=== PATIENT | male | born 1975 | race Caucasian/White ===

== ENCOUNTER 2017-05-16 10:57 | Inpatient (IN) | payer SELFPAY ==
[~2017-05-16] VITALS: Ht 167.6 cm; Wt 78.6 kg
[~2017-05-16 10:57] MED LIST: BACL-19 PO; DEXA4TAB PO; FOLI-17 PO; LORA1TAB PO; MULT1TAB60 PO; OXYC5CAP4 PO; PANT40TA5 PO; THIA100T6 PO
[2017-05-16] MEDS ORDERED: LORazepam 2 MG/ML, 1ML ONE ×4 (11:48→15:19)
[2017-05-16] MEDS: LORazepam 2 MG/ML, 1ML IVPush PRN ×7 (11:51→23:17)
[2017-05-16] MEDS ORDERED: SODIUM CHLORIDE 0.9% 1,000ML IVBOLUS ONE (12:00)
[2017-05-16] MEDS ORDERED: SODIUM CHLORIDE FLUSH 10ML SYR IVF ONE (12:00)
[2017-05-16 12:17] LABS: ASPARTATE AMINO TRANSFERASE 242 U/L (15-37); BLOOD UREA NITROGEN 8 mg/dL (7-18)
[2017-05-16 12:49] LABS: DIFF TOTAL CELLS COUNTED 100 CELL DIFF
[2017-05-16 12:53] LABS: ANISOCYTOSIS 1+; VERIFY COUNTS? YES
[2017-05-16 12:54] LABS: HYPOCHROMIA 1+
[2017-05-16 12:56] LABS: LARGE PLATELETS 1+
[2017-05-16] MEDS ORDERED: SODIUM CHLORIDE 0.9% 1,000 ML IV ONE (13:47)
[2017-05-16] MEDS ORDERED: SODIUM CHLORIDE FLUSH 10ML SYR IVF PRN (14:00)
[2017-05-16] MEDS: NS + 20MEQ KCL 1,000 ML IV SCH ×2 (14:03→19:57)
[2017-05-16] MEDS ORDERED: POLYETHYLENE GLYCOL 17 GM PACKET PO PRN (14:30)
[2017-05-16] MEDS ORDERED: ACETAMINOPHEN 325 MG TABLET PO PRN (14:30)
[2017-05-16] MEDS ORDERED: LORazepam 1MG TABLET PO PRN (14:30)
[2017-05-16] MEDS ORDERED: LABETALOL 5MG/ML 40ML VIAL IVPush PRN (14:30)
[2017-05-16] MEDS ORDERED: NS + 20MEQ KCL 1,000 ML IV ONE (15:20)
[2017-05-16] MEDS ORDERED: ENOXAPARIN 40 MG/0.4 ML ONE (15:37)
[2017-05-16] MEDS: ENOXAPARIN 40 MG/0.4 ML SQ SCH (15:39)
[2017-05-16] MEDS ORDERED: THIAMINE 200 MG in SODIUM CHLORIDE 0.9% 50 ML IV ONE (16:00)
[2017-05-16 16:21] VITALS: BP 145/87
[2017-05-16 16:34] VITALS: BP 145/87
[2017-05-16] MEDS: CHLORDIAZEPOXIDE 25 MG CAPSULE PO SCH ×2 (16:45→22:11)
[2017-05-16] MEDS: POTASSIUM CHLORIDE 20 MEQ, MAGNESIUM SULFATE 2 GM, THIAMINE 100 MG, MVI ADULT 10 ML, FO... IV SCH (16:46)
[2017-05-16] MEDS: OXYcodone IR 5MG TABLET PO PRN ×2 (19:57→20:23)
[2017-05-16] MEDS: LABETALOL 5MG/ML, 20ML IVPush PRN (23:43)
[2017-05-17] MEDS: LORazepam 2 MG/ML, 1ML IVPush PRN ×6 (02:50→23:09)
[2017-05-17] MEDS: OXYcodone IR 5MG TABLET PO PRN ×2 (02:53→11:39)
[2017-05-17 04:55] LABS: ASPARTATE AMINO TRANSFERASE 149 U/L (15-37); BLOOD UREA NITROGEN 2 mg/dL (7-18)
[2017-05-17 05:56] LABS: DIFF TOTAL CELLS COUNTED 100 CELL DIFF
[2017-05-17 06:01] LABS: ANISOCYTOSIS 1+; VERIFY COUNTS? YES
[2017-05-17 06:02] LABS: LARGE PLATELETS 1+
[2017-05-17] MEDS: NS + 20MEQ KCL 1,000 ML IV SCH ×3 (06:12→23:38)
[2017-05-17] MEDS: LABETALOL 5MG/ML, 20ML IVPush PRN ×2 (06:13→13:49)
[2017-05-17] MEDS ORDERED: POTASSIUM CHLORIDE 20 MEQ TAB.ER.PRT PO ONE (07:00)
[2017-05-17] MEDS: ONDANSETRON 2MG/ML, 2ML IVPush PRN ×2 (08:13→13:55)
[2017-05-17] MEDS: PANTOPROZOLE 40MG TABLET PO SCH (08:13)
[2017-05-17] MEDS: SENNA/DOCUSATE TABLET PO SCH (08:13)
[2017-05-17] MEDS: ENOXAPARIN 40 MG/0.4 ML SQ SCH (09:07)
[2017-05-17] MEDS: CHLORDIAZEPOXIDE 25 MG CAPSULE PO SCH ×3 (12:02→23:04)
[2017-05-17] MEDS: POTASSIUM CHLORIDE 20 MEQ, MAGNESIUM SULFATE 2 GM, THIAMINE 100 MG, MVI ADULT 10 ML, FO... IV SCH (18:56)
[2017-05-18 04:46] LABS: BLOOD UREA NITROGEN < 1 mg/dL (7-18)
[2017-05-18 04:48] LABS: ASPARTATE AMINO TRANSFERASE 91 U/L (15-37)
[2017-05-18] MEDS: LORazepam 2 MG/ML, 1ML IVPush PRN ×2 (04:52→07:29)
[2017-05-18 05:00] LABS: DIFF TOTAL CELLS COUNTED 100 CELL DIFF
[2017-05-18 05:03] LABS: ANISOCYTOSIS 1+; POLYCHROMASIA 1+; VERIFY COUNTS? YES
[2017-05-18 05:05] LABS: LARGE PLATELETS 1+
[2017-05-18] MEDS: NS + 20MEQ KCL 1,000 ML IV SCH (05:40)
[2017-05-18] MEDS: CHLORDIAZEPOXIDE 25 MG CAPSULE PO SCH ×3 (05:58→22:59)
[2017-05-18] MEDS: SENNA/DOCUSATE TABLET PO SCH (07:31)
[2017-05-18] MEDS: PANTOPROZOLE 40MG TABLET PO SCH (07:33)
[2017-05-18] MEDS: OXYcodone IR 5MG TABLET PO PRN ×2 (07:34→11:40)
[2017-05-18] MEDS ORDERED: LORazepam 2 MG/ML, 1ML IV PRN ×2 (10:30)
[2017-05-18] MEDS: LORazepam 2 MG/ML, 1ML IV PRN ×4 (10:35→20:16)
[2017-05-18] MEDS: ENOXAPARIN 40 MG/0.4 ML SQ SCH (14:30)
[2017-05-18] MEDS: POTASSIUM CHLORIDE 20 MEQ, MAGNESIUM SULFATE 2 GM, THIAMINE 100 MG, MVI ADULT 10 ML, FO... IV SCH (17:53)
[2017-05-18 18:43] VITALS: BP 116/82
[2017-05-19] MEDS: LORazepam 2 MG/ML, 1ML IV PRN ×5 (00:09→21:01)
[2017-05-19 01:24] VITALS: BP 123/90
[2017-05-19 05:48] LABS: BLOOD UREA NITROGEN 2 mg/dL (7-18)
[2017-05-19 05:51] LABS: ASPARTATE AMINO TRANSFERASE 196 U/L (15-37)
[2017-05-19 06:37] VITALS: BP 133/93
[2017-05-19 07:13] LABS: DIFF TOTAL CELLS COUNTED 100 CELL DIFF
[2017-05-19 07:18] LABS: VERIFY COUNTS? YES
[2017-05-19 07:20] LABS: ANISOCYTOSIS 1+; LARGE PLATELETS 1+; POLYCHROMASIA 1+
[2017-05-19] MEDS: SENNA/DOCUSATE TABLET PO SCH (09:00)
[2017-05-19] MEDS: PANTOPROZOLE 40MG TABLET PO SCH (09:06)
[2017-05-19] MEDS: CHLORDIAZEPOXIDE 25 MG CAPSULE PO SCH ×2 (09:07→17:29)
[2017-05-19] MEDS: OXYcodone IR 5MG TABLET PO PRN ×3 (09:12→21:01)
[2017-05-19 12:37] VITALS: BP 117/82
[2017-05-19] MEDS: POTASSIUM CHLORIDE 20 MEQ, MAGNESIUM SULFATE 2 GM, THIAMINE 100 MG, MVI ADULT 10 ML, FO... IV SCH (17:29)
[2017-05-19] MEDS: DEXAMETHASONE 4 MG TABLET PO SCH (17:30)
[2017-05-19 19:10] VITALS: BP 108/76
[2017-05-20] MEDS: CHLORDIAZEPOXIDE 25 MG CAPSULE PO SCH ×2 (00:49→08:19)
[2017-05-20] MEDS: LORazepam 2 MG/ML, 1ML IV PRN ×5 (00:49→23:07)
[2017-05-20 05:02] LABS: BLOOD UREA NITROGEN 6 mg/dL (7-18)
[2017-05-20 05:06] LABS: ASPARTATE AMINO TRANSFERASE 184 U/L (15-37)
[2017-05-20 06:25] LABS: DIFF TOTAL CELLS COUNTED 100 CELL DIFF
[2017-05-20 06:29] LABS: ANISOCYTOSIS 1+; VERIFY COUNTS? YES
[2017-05-20 06:30] LABS: LARGE PLATELETS 1+; POLYCHROMASIA 1+
[2017-05-20] MEDS: SENNA/DOCUSATE TABLET PO SCH (07:28)
[2017-05-20] MEDS: OXYcodone IR 5MG TABLET PO PRN ×2 (08:19→17:54)
[2017-05-20] MEDS: PANTOPROZOLE 40MG TABLET PO SCH (08:19)
[2017-05-20] MEDS: DEXAMETHASONE 4 MG TABLET PO SCH (08:19)
[2017-05-20] MEDS ORDERED: POTASSIUM PHOSPHATE 22 MEQ in SODIUM CHLORIDE 0.9% 500 ML IV ONE (10:30)
[2017-05-20] MEDS ORDERED: ERGOCALCIFEROL 50,000 UNIT CAPSULE PO SCH (10:30)
[2017-05-20] MEDS ORDERED: CHLORDIAZEPOXIDE 5 MG CAPSULE PO PRN ×2 (10:30→15:00)
[2017-05-20 13:12] VITALS: BP 106/75
[2017-05-20] MEDS: POTASSIUM CHLORIDE 20 MEQ, MAGNESIUM SULFATE 2 GM, THIAMINE 100 MG, MVI ADULT 10 ML, FO... IV SCH (15:30)
[2017-05-20 20:35] VITALS: BP 110/75
[2017-05-21] MEDS: LORazepam 2 MG/ML, 1ML IV PRN ×5 (01:13→13:32)
[2017-05-21 05:00] VITALS: BP 127/72
[2017-05-21 05:32] LABS: BLOOD UREA NITROGEN 9 mg/dL (7-18)
[2017-05-21 05:35] LABS: ASPARTATE AMINO TRANSFERASE 75 U/L (15-37)
[2017-05-21 07:29] VITALS: BP 127/88
[2017-05-21] MEDS: PANTOPROZOLE 40MG TABLET PO SCH (08:18)
[2017-05-21] MEDS: DEXAMETHASONE 4 MG TABLET PO SCH (08:19)
[2017-05-21] MEDS: SENNA/DOCUSATE TABLET PO SCH (08:22)
[2017-05-21] MEDS: ONDANSETRON 2MG/ML, 2ML IVPush PRN (12:30)
[2017-05-21] MEDS: OXYcodone IR 5MG TABLET PO PRN (12:32)
[2017-05-21 14:15] VITALS: BP 135/91
[2017-05-21] MEDS: POTASSIUM CHLORIDE 20 MEQ, MAGNESIUM SULFATE 2 GM, THIAMINE 100 MG, MVI ADULT 10 ML, FO... IV SCH (16:49)
[2017-05-21 19:01] VITALS: BP 126/86
[2017-05-22 02:14] VITALS: BP 144/103
[2017-05-22 07:02] VITALS: BP 123/81
[2017-05-22] MEDS: SENNA/DOCUSATE TABLET PO SCH (09:00)
[2017-05-22] MEDS: OXYcodone IR 5MG TABLET PO PRN (10:36)
[2017-05-22] MEDS: PANTOPROZOLE 40MG TABLET PO SCH (10:36)
[2017-05-22] MEDS: DEXAMETHASONE 4 MG TABLET PO SCH (10:36)
[2017-05-22] MEDS: LORazepam 2 MG/ML, 1ML IV PRN (10:41)
[2017-05-22 13:48] VITALS: BP 118/75
[2017-05-22] MEDS ORDERED: FOLI-17 PO (14:50)
[2017-05-22] MEDS ORDERED: ERGO500017 PO (14:50)
[2017-05-22] MEDS ORDERED: MULT-412 PO (14:50)
[2017-05-22] MEDS ORDERED: THIA100T6 PO (14:50)
== END 2017-05-22 17:11 | disposition home or self-care (01) | DRG 896 ==
LOC: ED 13:42 → EDIP 13:47 → CCU 15:49 → 3NE 05-18 15:08 → DCLOUNGE 05-22 16:45
PROVIDERS: ADMIT Internal Medicine; ATTEND Internal Medicine
DX: F10.239 Alcohol dependence with withdrawal, unspecified (principal); K85.20 Alcohol induced acute pancreatitis without necrosis or infection; D61.818 Other pancytopenia; D69.3 Immune thrombocytopenic purpura; E87.6 Hypokalemia; K70.10 Alcoholic hepatitis without ascites; I10 Essential (primary) hypertension; D50.0 Iron deficiency anemia secondary to blood loss (chronic); K29.20 Alcoholic gastritis without bleeding; E55.9 Vitamin D deficiency, unspecified; Z83.3 Family history of diabetes mellitus
CPT/HCPCS: 36415; 80053; 80307; 82010; 82140; 82306; 82607; 82728; 82746; 83540; 83550; 83690; 83735; 84100; 84443; 85025; 85610; 85730; 87081; 93005; 96361; 96374; 96376; J1650; J2405; J3411; J3475; J3480; J7042; J2060; J7030; J7040

== ENCOUNTER 2017-09-26 23:07 | Inpatient (IN) | payer OTHER ==
[~2017-09-26] VITALS: Ht 167.6 cm; Wt 86.8 kg
[~2017-09-26 23:07] MED LIST changes: +ERGO500017 PO; +FERR-36 PO; +MAGN400T26 PO; +MULT-412 PO; +OMEP-110 PO; +ONDA4TAB13 SL; +OXYC5CAP2 PO; -OXYC5CAP4 PO; +TRAM50TA2 PO
[2017-09-26 23:55] LABS: HEMATOCRIT 28.7 % (39.2-51.8); HEMOGLOBIN 9.5 g/dL (13.7-18.0); WHITE BLOOD COUNT 5.1 x10^3/uL (3.4-10)
[2017-09-27] MEDS ORDERED: MORPHINE SULFATE 4 MG/ML, 1ML IVPush PRN
[2017-09-27] MEDS ORDERED: SODIUM CHLORIDE 0.9% 1,000ML IVBOLUS ONE
[2017-09-27] MEDS ORDERED: ONDANSETRON 2MG/ML, 2ML IVPush ONE
[2017-09-27 00:02] LABS: ASPARTATE AMINO TRANSFERASE 53 U/L (15-37); BLOOD UREA NITROGEN 5 mg/dL (7-18)
[2017-09-27] MEDS ORDERED: morphine SULFATE 10 MG/ML, 1ML ONE (00:21)
[2017-09-27] MEDS ORDERED: ONDANSETRON 2MG/ML, 2ML ONE (00:21)
[2017-09-27] MEDS ORDERED: OMNIPAQUE 350 MG/ML, 100ML BOTTLE ONE (00:39)
[2017-09-27] MEDS ORDERED: LORazepam 2 MG/ML, 1ML ONE ×2 (01:56→03:22)
[2017-09-27] MEDS ORDERED: LORazepam 2 MG/ML, 1ML IVPush ONE ×2 (02:00→03:30)
[2017-09-27] MEDS ORDERED: DIAZEPAM 5 MG/ML, 10ML VIAL IV ONE (04:30)
[2017-09-27] MEDS ORDERED: AMPICILLIN/SULBACTAM 3 GM in SODIUM CHLORIDE 0.9% 100 ML IV ONE (04:30)
[2017-09-27] MEDS ORDERED: hydrALAzine 20 MG/ML, 1ML IVPush PRN (05:00)
[2017-09-27] MEDS ORDERED: ONDANSETRON 2MG/ML, 2ML IVPush PRN (05:00)
[2017-09-27] MEDS ORDERED: ACETAMINOPHEN 325 MG TABLET PO PRN (05:00)
[2017-09-27] MEDS ORDERED: HALOPERIDOL 5 MG/ML IM PRN (05:00)
[2017-09-27] MEDS ORDERED: LORazepam 2 MG/ML, 1ML IV PRN ×2 (05:30)
[2017-09-27] MEDS ORDERED: DIAZEPAM 5 MG/ML, 2ML IV ONE (05:30)
[2017-09-27 05:52] VITALS: BP 140/95
[2017-09-27] MEDS: LACTATED RINGERS 1,000 ML IV SCH (06:09)
[2017-09-27] MEDS: ENOXAPARIN 40 MG/0.4 ML SQ SCH (06:14)
[2017-09-27] MEDS: LORazepam 2 MG/ML, 1ML IV PRN ×7 (06:14→21:18)
[2017-09-27] MEDS ORDERED: PNEUMOCOCCAL 23 VACCINE IM-VACC ONE (06:30)
[2017-09-27] MEDS: AMPICILLIN/SULBACTAM 1,500 MG in SODIUM CHLORIDE 0.9% 50 ML IV SCH ×4 (06:40→23:19)
[2017-09-27] MEDS: FERROUS SULFATE 325 MG TABLET PO SCH ×3 (08:05→16:32)
[2017-09-27] MEDS: FAMOTIDINE 20 MG/2 ML IVPush SCH ×2 (08:05→21:06)
[2017-09-27] MEDS: POTASSIUM CHLORIDE 20 MEQ, MAGNESIUM SULFATE 2 GM, THIAMINE 100 MG, MVI ADULT 10 ML in ... IV SCH ×2 (08:06→14:40)
[2017-09-27 08:14] VITALS: BP 147/97
[2017-09-27] MEDS: HYDROmorphone 2 MG/ML, 1ML IVPush PRN ×3 (10:08→21:18)
[2017-09-27 13:18] VITALS: BP 166/96
[2017-09-27 19:02] VITALS: BP 163/100
[2017-09-28 01:25] VITALS: BP 150/100
[2017-09-28] MEDS: LORazepam 2 MG/ML, 1ML IV PRN ×6 (02:27→23:48)
[2017-09-28] MEDS: POTASSIUM CHLORIDE 20 MEQ, MAGNESIUM SULFATE 2 GM, THIAMINE 100 MG, MVI ADULT 10 ML in ... IV SCH ×3 (02:27→23:50)
[2017-09-28] MEDS: HYDROmorphone 2 MG/ML, 1ML IVPush PRN ×6 (02:27→23:41)
[2017-09-28] MEDS: AMPICILLIN/SULBACTAM 1,500 MG in SODIUM CHLORIDE 0.9% 50 ML IV SCH ×4 (05:42→23:43)
[2017-09-28] MEDS: ENOXAPARIN 40 MG/0.4 ML SQ SCH (05:42)
[2017-09-28 06:05] LABS: HEMATOCRIT 32.6 % (39.2-51.8); HEMOGLOBIN 11.1 g/dL (13.7-18.0); WHITE BLOOD COUNT 4.8 x10^3/uL (3.4-10)
[2017-09-28 06:18] LABS: ASPARTATE AMINO TRANSFERASE 170 U/L (15-37); BLOOD UREA NITROGEN 2 mg/dL (7-18)
[2017-09-28] MEDS: LACTATED RINGERS 1,000 ML IV SCH ×2 (07:00→17:07)
[2017-09-28 08:28] VITALS: BP 150/113
[2017-09-28] MEDS: FERROUS SULFATE 325 MG TABLET PO SCH ×3 (08:48→17:07)
[2017-09-28] MEDS: FAMOTIDINE 20 MG/2 ML IVPush SCH ×2 (08:48→21:15)
[2017-09-28 15:07] VITALS: BP 142/92
[2017-09-28 19:12] VITALS: BP 146/96
[2017-09-29 00:50] VITALS: BP 144/96
[2017-09-29] MEDS: LORazepam 2 MG/ML, 1ML IV PRN ×6 (05:43→23:32)
[2017-09-29] MEDS: ENOXAPARIN 40 MG/0.4 ML SQ SCH (05:43)
[2017-09-29] MEDS: AMPICILLIN/SULBACTAM 1,500 MG in SODIUM CHLORIDE 0.9% 50 ML IV SCH ×4 (05:43→23:26)
[2017-09-29] MEDS: HYDROmorphone 2 MG/ML, 1ML IVPush PRN ×2 (05:43→09:47)
[2017-09-29 08:09] VITALS: BP 120/86
[2017-09-29] MEDS: FAMOTIDINE 20 MG/2 ML IVPush SCH (09:31)
[2017-09-29] MEDS: FERROUS SULFATE 325 MG TABLET PO SCH ×3 (09:47→17:23)
[2017-09-29] MEDS: FAMOTIDINE 20 MG TABLET PO SCH ×2 (10:40→20:14)
[2017-09-29] MEDS: morphine SULFATE 10 MG/ML, 1ML IVPush PRN ×4 (12:47→21:52)
[2017-09-29 13:30] VITALS: BP 120/90
[2017-09-29] MEDS: LACTATED RINGERS 1,000 ML IV SCH ×2 (15:23→21:57)
[2017-09-29 20:00] VITALS: BP 136/100
[2017-09-29] MEDS: OXYcodone/APAP 5/325MG TABLET PO PRN (20:03)
[2017-09-30 01:18] VITALS: BP 138/93
[2017-09-30] MEDS: POTASSIUM CHLORIDE 20 MEQ, MAGNESIUM SULFATE 2 GM, THIAMINE 100 MG, MVI ADULT 10 ML in ... IV SCH (01:23)
[2017-09-30] MEDS: OXYcodone/APAP 5/325MG TABLET PO PRN ×6 (01:23→22:46)
[2017-09-30] MEDS: AMPICILLIN/SULBACTAM 1,500 MG in SODIUM CHLORIDE 0.9% 50 ML IV SCH (05:35)
[2017-09-30] MEDS: ENOXAPARIN 40 MG/0.4 ML SQ SCH (05:36)
[2017-09-30 05:42] LABS: ASPARTATE AMINO TRANSFERASE 41 U/L (15-37); BLOOD UREA NITROGEN 6 mg/dL (7-18)
[2017-09-30] MEDS: LORazepam 2 MG/ML, 1ML IV PRN (05:44)
[2017-09-30 07:20] VITALS: BP 129/88
[2017-09-30] MEDS: LACTATED RINGERS 1,000 ML IV SCH (10:00)
[2017-09-30] MEDS: FAMOTIDINE 20 MG TABLET PO SCH ×2 (10:08→22:30)
[2017-09-30] MEDS: FERROUS SULFATE 325 MG TABLET PO SCH ×3 (10:08→17:24)
[2017-09-30] MEDS ORDERED: OMNIPAQUE 350 MG/ML, 100ML BOTTLE ONE (10:56)
[2017-09-30] MEDS: FOLIC ACID 1 MG TABLET PO SCH (11:24)
[2017-09-30] MEDS: THIAMINE 100 MG/ML, 2ML IM SCH (11:24)
[2017-09-30] MEDS: MULTIVITAMIN 1 TABLET PO SCH (11:24)
[2017-09-30] MEDS: LORazepam 1MG TABLET PO PRN ×2 (11:24→17:24)
[2017-09-30 13:36] VITALS: BP 104/71
[2017-09-30 19:30] VITALS: BP 127/80
[2017-10-01 02:51] VITALS: BP 130/91
[2017-10-01 07:28] VITALS: BP 123/88
[2017-10-01] MEDS: FOLIC ACID 1 MG TABLET PO SCH (08:37)
[2017-10-01] MEDS: THIAMINE 100 MG/ML, 2ML IM SCH (08:37)
[2017-10-01] MEDS: FAMOTIDINE 20 MG TABLET PO SCH ×2 (08:37→20:09)
[2017-10-01] MEDS: MULTIVITAMIN 1 TABLET PO SCH (08:37)
[2017-10-01] MEDS: FERROUS SULFATE 325 MG TABLET PO SCH ×3 (08:37→17:26)
[2017-10-01] MEDS: AMOXICILLIN/CLAV 875-125MG TABLET PO SCH ×2 (12:13→22:45)
[2017-10-01] MEDS: OXYcodone/APAP 5/325MG TABLET PO PRN ×3 (12:15→22:45)
[2017-10-01] MEDS: LORazepam 1MG TABLET PO PRN ×4 (12:15→22:45)
[2017-10-01 13:39] VITALS: BP 123/81
[2017-10-01 19:15] VITALS: BP 117/84
[2017-10-02 02:50] VITALS: BP 122/78
[2017-10-02] MEDS: OXYcodone/APAP 5/325MG TABLET PO PRN (03:25)
[2017-10-02 04:57] LABS: HEMOGLOBIN 11.6 g/dL (13.7-18.0)
[2017-10-02 05:12] LABS: ASPARTATE AMINO TRANSFERASE 62 U/L (15-37); BLOOD UREA NITROGEN 11 mg/dL (7-18)
[2017-10-02] MEDS: LORazepam 1MG TABLET PO PRN (05:22)
[2017-10-02 07:09] VITALS: BP 112/82
[2017-10-02] MEDS: FAMOTIDINE 20 MG TABLET PO SCH (08:04)
[2017-10-02] MEDS: FOLIC ACID 1 MG TABLET PO SCH (08:04)
[2017-10-02] MEDS: FERROUS SULFATE 325 MG TABLET PO SCH (08:04)
[2017-10-02] MEDS: MULTIVITAMIN 1 TABLET PO SCH (08:04)
[2017-10-02] MEDS: THIAMINE 100 MG/ML, 2ML IM SCH (08:05)
== END 2017-10-02 09:20 | disposition home or self-care (01) | DRG 438 ==
LOC: ED 23:59 → UNDOADMIN 09-27 04:00 → EDIP 09-27 04:00 → 4NOR 09-27 05:42 → EDIP 09-27 05:42
PROVIDERS: ADMIT Hospitalist; ATTEND Hospitalist
DX: K85.20 Alcohol induced acute pancreatitis without necrosis or infection (principal); E43 Unspecified severe protein-calorie malnutrition; K65.1 Peritoneal abscess; L03.311 Cellulitis of abdominal wall; E87.5 Hyperkalemia; D64.9 Anemia, unspecified; E11.9 Type 2 diabetes mellitus without complications; F10.239 Alcohol dependence with withdrawal, unspecified; L03.316 Cellulitis of umbilicus; E87.6 Hypokalemia; F10.229 Alcohol dependence with intoxication, unspecified; I10 Essential (primary) hypertension; K59.00 Constipation, unspecified; Z90.49 Acquired absence of other specified parts of digestive tract; Z23 Encounter for immunization; Z68.30 Body mass index [BMI] 30.0-30.9, adult
CPT/HCPCS: 36415; 74177; 80053; 80307; 83690; 83735; 84100; 85025; 90732; 96361; 96374; 99291; J0295; J1170; J1650; J2405; J3360; J3411; J3475; J3480; J7042; Q9967; G0479; J0360; J2060; J2270; J7030; J7120; S0028

== ENCOUNTER 2017-10-25 01:38 | Emergency (ER) | payer SELFPAY ==
[~2017-10-25] VITALS: Ht 167.6 cm; Wt 86.5 kg
[2017-10-25 01:40] VITALS: BP 154/102
[2017-10-25] MEDS ORDERED: LORA-446 PO (02:45)
[2017-10-25] MEDS ORDERED: LORazepam 1MG TABLET ONE ×2 (02:46→04:33)
[2017-10-25] MEDS ORDERED: LORazepam 1MG TABLET PO ONE ×2 (03:00→05:00)
[2017-10-25 04:55] LABS: RAPID INFLUENZA A Negative (Negative); RAPID INFLUENZA B Negative (Negative)
== END 2017-10-25 03:25 | disposition home or self-care (01) ==
LOC: ED 03:24
DX: J02.8 Acute pharyngitis due to other specified organisms (principal); J00 Acute nasopharyngitis [common cold]; F10.20 Alcohol dependence, uncomplicated; E11.9 Type 2 diabetes mellitus without complications; F32.9 Major depressive disorder, single episode, unspecified; I10 Essential (primary) hypertension; Z90.49 Acquired absence of other specified parts of digestive tract
CPT/HCPCS: 71010; 87400; 99285

== ENCOUNTER 2017-12-06 21:17 | Emergency (ER) | payer MEDICAID, OTHER ==
[~2017-12-06] VITALS: Ht 167.6 cm; Wt 127.0 kg
[~2017-12-06 21:17] MED LIST changes: -FERR-36 PO; +FERR-51 PO; +LORA-446 PO
[2017-12-07 00:44] VITALS: BP 117/81
== END 2017-12-07 01:08 | disposition home or self-care (01) ==
LOC: ED 22:33
DX: F10.220 Alcohol dependence with intoxication, uncomplicated (principal); I10 Essential (primary) hypertension; E11.9 Type 2 diabetes mellitus without complications; G89.29 Other chronic pain; Z90.49 Acquired absence of other specified parts of digestive tract
CPT/HCPCS: 99283

== ENCOUNTER 2017-12-12 11:51 | Inpatient (IN) | payer MEDICAID ==
[~2017-12-12] VITALS: Ht 167.6 cm; Wt 88.1 kg
[2017-12-12] MEDS ORDERED: LORazepam 1MG TABLET ONE (14:45)
[2017-12-12] MEDS ORDERED: HYDROcodone/APAP 5/325 TABLET ONE (14:45)
[2017-12-12] MEDS ORDERED: HYDROcodone/APAP 5/325 TABLET PO ONE (15:00)
[2017-12-12] MEDS ORDERED: LORazepam 1MG TABLET PO ONE (15:00)
[2017-12-12] MEDS ORDERED: SODIUM CHLORIDE 0.9% 1,000 ML IV ONE (15:22)
[2017-12-12] MEDS ORDERED: SODIUM CHLORIDE FLUSH 10ML SYR IVF ONE (15:30)
[2017-12-12] MEDS ORDERED: SODIUM CHLORIDE 0.9% 1,000ML IVBOLUS ONE ×2 (15:30→17:00)
[2017-12-12 15:52] LABS: MEAN CORPUSCULAR HEMOGLOBIN 24.9 pg (27.5-34.5); MEAN CORPUSCULAR HGB CONC 32.2 g/dL (33.2-36.2); MEAN CORPUSCULAR VOLUME 77.4 fL (81-97); MEAN PLATELET VOLUME 9.6 fL (7.4-10.4); PLATELET COUNT 118 x10^3/uL (130-400); RED BLOOD COUNT 4.87 x10^6/uL (4.38-5.82); RED CELL DISTRIBUTION WIDTH 18.7 % (9.4-14.8)
[2017-12-12 15:56] LABS: MD YES
[2017-12-12] MEDS ORDERED: CEFTRIAXONE PMX 1GM/50ML 50 ML IV ONE (16:00)
[2017-12-12 16:04] LABS: ALBUMIN 3.1 g/dL (3.4-5.0); ANION GAP 21 mmol/L (5-15); CALCIUM 7.7 mg/dL (8.5-10.1); CHLORIDE 101 mmol/L (98-107)
[2017-12-12 16:08] LABS: ALANINE AMINOTRANSFERASE 165 U/L (12-78); ALKALINE PHOSPHATASE 60 U/L (45-117); BILIRUBIN,TOTAL 2.6 mg/dL (0.2-1.0); CREATININE 1.05 mg/dL (0.7-1.3); TOTAL PROTEIN 8.1 g/dL (6.4-8.2)
[2017-12-12] MEDS ORDERED: CEFTRIAXONE PMX 1GM/50ML 50 ML ONE (16:15)
[2017-12-12 16:42] LABS: BAND#(MANUAL) 6.35 x10^3/uL; BANDS%(MANUAL) 27 % (0-7); LYMPH#(MANUAL) 2.59 x10^3/uL (1-3.4); LYMPHS% (MANUAL) 11 % (22-44); METAMYELOCYTES# (MANUAL) 0.71 x10^3/uL (0-0); METAMYELOCYTES% (MANUAL) 3 % (0-1); MONOS#(MANUAL) 0.24 x10^3/uL (0.3-2.7); MONOS% (MANUAL) 1 % (2-9); MYELOCYTES# (MANUAL) 0.24 x10^3/uL (0-0); MYELOCYTES% (MANUAL) 1 % (0-0); SEGS% (MANUAL) 57 % (42-75)
[2017-12-12 16:45] LABS: HYPOCHROMIA 1+; MICROCYTOSIS 1+; POLYCHROMASIA 1+
[2017-12-12 16:46] LABS: <PLATELET ESTIMATE> DECREASED; <PLT MORPHOLOGY> NORMAL PLT MORPH
[2017-12-12] MEDS ORDERED: NS + 20MEQ KCL 1,000 ML IV SCH (16:48)
[2017-12-12] MEDS: PIPERACILLIN/TAZO/PMX 3.375GM 50 ML IV SCH ×2 (17:00→23:09)
[2017-12-12] MEDS ORDERED: POLYETHYLENE GLYCOL 17 GM PACKET PO PRN (17:00)
[2017-12-12] MEDS ORDERED: ACETAMINOPHEN 325 MG TABLET PO PRN (17:00)
[2017-12-12] MEDS ORDERED: ONDANSETRON 2MG/ML, 2ML IVPush PRN (17:00)
[2017-12-12] MEDS ORDERED: DOCUSATE 100 MG CAPSULE PO PRN (17:00)
[2017-12-12] MEDS ORDERED: BISACODYL 10 MG SUPP PR PRN (17:00)
[2017-12-12] MEDS ORDERED: METOCLOPRAMIDE 5 MG/ML, 2ML IVPush PRN (17:00)
[2017-12-12] MEDS ORDERED: VANCOMYCIN PER PHARMACY MC PRN (17:00)
[2017-12-12] MEDS ORDERED: D5%-0.45NACL+KCL 20MEQ 1,000 ML IV SCH (17:30)
[2017-12-12] MEDS ORDERED: PIPERACILLIN/TAZO/PMX 3.375GM 50 ML ONE (17:44)
[2017-12-12] MEDS ORDERED: MAGNESIUM SULFATE PMX 4GM/100M 100 ML IV ONE (18:00)
[2017-12-12] MEDS ORDERED: SODIUM CHLORIDE 0.9% IV ONE ×2 (18:00)
[2017-12-12] MEDS ORDERED: PHENOBARBITAL SODIUM IV ONE ×2 (18:00)
[2017-12-12] MEDS ORDERED: PHARMACOKINETIC CONSULTATION MC ONE (19:00)
[2017-12-12] MEDS ORDERED: PHARMACOKINETIC MONITORING MC PRN (19:00)
[2017-12-12] MEDS: NS + 40MEQ KCL 1,000 ML IV SCH (19:34)
[2017-12-12] MEDS: THIAMINE 200 MG in SODIUM CHLORIDE 0.9% 50 ML IV SCH (19:37)
[2017-12-12] MEDS: VANCOMYCIN 1,700 MG in SODIUM CHLORIDE 0.9% 250 ML IV SCH (19:38)
[2017-12-12] MEDS: ENOXAPARIN 40 MG/0.4 ML SQ SCH (20:15)
[2017-12-12 20:26] VITALS: BP 97/65
[2017-12-12] MEDS ORDERED: FUROSEMIDE 40 MG/4 ML ONE (22:50)
[2017-12-12] MEDS ORDERED: POTASSIUM CHLORIDE 20 MEQ TAB.ER.PRT ONE (22:54)
[2017-12-12] MEDS ORDERED: FUROSEMIDE 40 MG/4 ML IV ONE (23:00)
[2017-12-12] MEDS ORDERED: POTASSIUM CHLORIDE 20 MEQ TAB.ER.PRT PO ONE (23:00)
[2017-12-12] MEDS: PHENOBARBITAL SODIUM 65 MG/ML, 1ML IV SCH (23:09)
[2017-12-12] MEDS ORDERED: ALBUTEROL SULFATE 2.5 MG/3 ML NPPB SCH (23:30)
[2017-12-13 01:41] LABS: MICROSCOPIC NOT IND
[2017-12-13 01:47] LABS: CULTURE INDICATED? NO
[2017-12-13 04:00] VITALS: BP 116/75
[2017-12-13 04:43] LABS: MEAN CORPUSCULAR HEMOGLOBIN 25.3 pg (27.5-34.5); MEAN CORPUSCULAR HGB CONC 32.7 g/dL (33.2-36.2); MEAN CORPUSCULAR VOLUME 77.4 fL (81-97); RED BLOOD COUNT 4.01 x10^6/uL (4.38-5.82); RED CELL DISTRIBUTION WIDTH 18.3 % (9.4-14.8)
[2017-12-13 04:47] LABS: ALBUMIN 2.2 g/dL (3.4-5.0); ANION GAP 11 mmol/L (5-15); CALCIUM 6.7 mg/dL (8.5-10.1); CHLORIDE 107 mmol/L (98-107)
[2017-12-13 04:53] LABS: ALANINE AMINOTRANSFERASE 234 U/L (12-78); ALKALINE PHOSPHATASE 36 U/L (45-117); BILIRUBIN,TOTAL 2.3 mg/dL (0.2-1.0); CREATININE 0.88 mg/dL (0.7-1.3); TOTAL PROTEIN 6.2 g/dL (6.4-8.2)
[2017-12-13] MEDS: PHENOBARBITAL SODIUM 65 MG/ML, 1ML IV SCH (04:54)
[2017-12-13] MEDS: PHENOBARBITAL 20 MG/5 ML ORAL SOL PO SCH ×2 (05:17→17:06)
[2017-12-13] MEDS: NS + 40MEQ KCL 1,000 ML IV SCH ×2 (05:17→15:29)
[2017-12-13] MEDS: PIPERACILLIN/TAZO/PMX 3.375GM 50 ML IV SCH ×4 (05:19→23:11)
[2017-12-13 05:56] LABS: MD YES
[2017-12-13 05:57] LABS: MEAN PLATELET VOLUME 9.3 fL (7.4-10.4); PLATELET COUNT 79 x10^3/uL (130-400)
[2017-12-13 05:59] LABS: <PLATELET ESTIMATE> DECREASED; <PLT MORPHOLOGY> NORMAL PLT MORPH; ANISOCYTOSIS 1+; BAND#(MANUAL) 3.97 x10^3/uL; BANDS%(MANUAL) 32 % (0-7); LYMPH#(MANUAL) 2.23 x10^3/uL (1-3.4); LYMPHS% (MANUAL) 18 % (22-44); MICROCYTOSIS 1+; SEGS% (MANUAL) 50 % (42-75)
[2017-12-13 06:00] LABS: POLYCHROMASIA 1+
[2017-12-13] MEDS: MULTIVITAMIN 1 TABLET PO SCH (08:09)
[2017-12-13] MEDS: POTASSIUM CHLORIDE 20 MEQ TAB.ER.PRT PO SCH ×2 (08:10→17:00)
[2017-12-13 09:30] LABS: INTERNATIONAL NORMALIZED RATIO 1.97 (0.93-1.1)
[2017-12-13] MEDS: prednisOLONE 15 MG/5 ML ORAL SOLN PO SCH (10:56)
[2017-12-13 11:52] LABS: RAPID INFLUENZA A Negative (Negative); RAPID INFLUENZA B Negative (Negative)
[2017-12-13] MEDS: VANCOMYCIN 1,700 MG in SODIUM CHLORIDE 0.9% 250 ML IV SCH (13:02)
[2017-12-13] MEDS: FENTANYL PF 100 MCG/2ML IVPush PRN ×3 (14:13→20:49)
[2017-12-13] MEDS: OXYcodone IR 5MG TABLET PO PRN (15:28)
[2017-12-13 15:53] LABS: MICROSCOPIC INDICATED
[2017-12-13 16:28] LABS: CULTURE INDICATED? NO
[2017-12-13] MEDS: THIAMINE 200 MG in SODIUM CHLORIDE 0.9% 50 ML IV SCH (20:49)
[2017-12-13] MEDS: ENOXAPARIN 40 MG/0.4 ML SQ SCH (20:49)
[2017-12-14] MEDS: NS + 40MEQ KCL 1,000 ML IV SCH (01:12)
[2017-12-14] MEDS: OXYcodone IR 5MG TABLET PO PRN ×2 (04:27→21:10)
[2017-12-14] MEDS: PHENOBARBITAL 20 MG/5 ML ORAL SOL PO SCH ×2 (04:27→16:38)
[2017-12-14 04:39] VITALS: BP 127/84
[2017-12-14 04:44] LABS: MEAN CORPUSCULAR HGB CONC 31.8 g/dL (33.2-36.2); MEAN CORPUSCULAR VOLUME 78.5 fL (81-97); RED BLOOD COUNT 3.82 x10^6/uL (4.38-5.82)
[2017-12-14 04:55] LABS: CHLORIDE 110 mmol/L (98-107)
[2017-12-14 05:01] LABS: ALANINE AMINOTRANSFERASE 471 U/L (12-78); ALBUMIN 2.1 g/dL (3.4-5.0); ALKALINE PHOSPHATASE 52 U/L (45-117); ANION GAP 6 mmol/L (5-15); BILIRUBIN,TOTAL 1.6 mg/dL (0.2-1.0); TOTAL PROTEIN 6.2 g/dL (6.4-8.2)
[2017-12-14 05:11] LABS: MD YES; MEAN PLATELET VOLUME 10.4 fL (7.4-10.4); PLATELET COUNT 94 x10^3/uL (130-400)
[2017-12-14] MEDS: PIPERACILLIN/TAZO/PMX 3.375GM 50 ML IV SCH (05:11)
[2017-12-14 05:13] LABS: ANISOCYTOSIS 1+; BAND#(MANUAL) 1.11 x10^3/uL; BANDS%(MANUAL) 11 % (0-7); HYPOCHROMIA 1+; LYMPH#(MANUAL) 0.91 x10^3/uL (1-3.4); LYMPHS% (MANUAL) 9 % (22-44); MICROCYTOSIS 1+; POLYCHROMASIA 1+; SEG#(MANUAL) 8.08 x10^3/uL (1.8-6.8); SEGS% (MANUAL) 80 % (42-75)
[2017-12-14 05:14] LABS: <PLATELET ESTIMATE> DECREASED; LARGE PLATELETS 1+
[2017-12-14] MEDS: VANCOMYCIN 1,700 MG in SODIUM CHLORIDE 0.9% 250 ML IV SCH (08:47)
[2017-12-14] MEDS: POTASSIUM CHLORIDE 20 MEQ TAB.ER.PRT PO SCH ×2 (08:49→16:38)
[2017-12-14] MEDS: prednisOLONE 15 MG/5 ML ORAL SOLN PO SCH (08:49)
[2017-12-14] MEDS: MULTIVITAMIN 1 TABLET PO SCH (08:50)
[2017-12-14] MEDS: FENTANYL PF 100 MCG/2ML IVPush PRN ×3 (08:55→20:09)
[2017-12-14] MEDS: CEFDINIR 300 MG CAPSULE PO SCH ×2 (10:32→21:34)
[2017-12-14 13:57] VITALS: BP 132/94
[2017-12-14 19:24] VITALS: BP 148/98
[2017-12-14] MEDS: ENOXAPARIN 40 MG/0.4 ML SQ SCH (21:10)
[2017-12-14] MEDS ORDERED: BENZONATATE 100 MG CAPSULE PO PRN (21:30)
[2017-12-15 01:11] VITALS: BP 143/93
[2017-12-15 05:51] LABS: ALBUMIN 2.3 g/dL (3.4-5.0); ANION GAP 5 mmol/L (5-15); CALCIUM 7.8 mg/dL (8.5-10.1); CHLORIDE 104 mmol/L (98-107)
[2017-12-15 05:56] LABS: ALANINE AMINOTRANSFERASE 330 U/L (12-78); ALKALINE PHOSPHATASE 86 U/L (45-117); BILIRUBIN,TOTAL 1.2 mg/dL (0.2-1.0); CREATININE 0.49 mg/dL (0.7-1.3); MEAN CORPUSCULAR HEMOGLOBIN 25.2 pg (27.5-34.5); MEAN CORPUSCULAR VOLUME 78.8 fL (81-97); MEAN PLATELET VOLUME 8.9 fL (7.4-10.4); PLATELET COUNT 94 x10^3/uL (130-400); RED CELL DISTRIBUTION WIDTH 18.1 % (9.4-14.8); TOTAL PROTEIN 6.7 g/dL (6.4-8.2)
[2017-12-15 06:41] LABS: MD YES
[2017-12-15 06:44] LABS: <PLATELET ESTIMATE> DECREASED; ANISOCYTOSIS 1+; BAND#(MANUAL) 0.13 x10^3/uL; BANDS%(MANUAL) 2 % (0-7); EOS#(MANUAL) 0.13 x10^3/uL (0.0-0.4); EOS% (MANUAL) 2 % (1-7); LYMPH#(MANUAL) 1.79 x10^3/uL (1-3.4); LYMPHS% (MANUAL) 28 % (22-44); MICROCYTOSIS 1+; MONOS#(MANUAL) 0.45 x10^3/uL (0.3-2.7); MONOS% (MANUAL) 7 % (2-9); MYELOCYTES# (MANUAL) 0.06 x10^3/uL (0-0); MYELOCYTES% (MANUAL) 1 % (0-0); POLYCHROMASIA 1+; SEG#(MANUAL) 3.84 x10^3/uL (1.8-6.8); SEGS% (MANUAL) 60 % (42-75)
[2017-12-15 06:45] LABS: <PLT MORPHOLOGY> NORMAL PLT MORPH
[2017-12-15] MEDS: CEFDINIR 300 MG CAPSULE PO SCH ×2 (10:10→20:52)
[2017-12-15] MEDS: prednisOLONE 15 MG/5 ML ORAL SOLN PO SCH (10:10)
[2017-12-15] MEDS: THIAMINE 100MG TABLET PO SCH (10:10)
[2017-12-15] MEDS: MULTIVITAMIN 1 TABLET PO SCH (10:10)
[2017-12-15] MEDS: OXYcodone IR 5MG TABLET PO PRN ×2 (10:27→21:15)
[2017-12-15 11:05] VITALS: BP 137/98
[2017-12-15 14:02] VITALS: BP 136/95
[2017-12-15] MEDS ORDERED: PHENOBARBITAL 20 MG/5 ML ORAL SOL PO ONE (15:00)
[2017-12-15 19:12] VITALS: BP 133/84
[2017-12-15] MEDS: PHENOBARBITAL 20 MG/5 ML ORAL SOL PO SCH (20:52)
[2017-12-15] MEDS: ENOXAPARIN 40 MG/0.4 ML SQ SCH (20:52)
[2017-12-16 00:54] VITALS: BP 129/75
[2017-12-16 05:30] LABS: MEAN CORPUSCULAR HEMOGLOBIN 25.3 pg (27.5-34.5); MEAN CORPUSCULAR HGB CONC 32.6 g/dL (33.2-36.2); MEAN CORPUSCULAR VOLUME 77.7 fL (81-97); MEAN PLATELET VOLUME 10.2 fL (7.4-10.4); PLATELET COUNT 93 x10^3/uL (130-400); RED BLOOD COUNT 4.23 x10^6/uL (4.38-5.82); RED CELL DISTRIBUTION WIDTH 18.7 % (9.4-14.8)
[2017-12-16 05:38] LABS: CHLORIDE 103 mmol/L (98-107)
[2017-12-16 05:46] LABS: ALANINE AMINOTRANSFERASE 226 U/L (12-78); ALBUMIN 2.4 g/dL (3.4-5.0); ALKALINE PHOSPHATASE 129 U/L (45-117); ANION GAP 10 mmol/L (5-15); BILIRUBIN,TOTAL 1.1 mg/dL (0.2-1.0); CALCIUM 7.6 mg/dL (8.5-10.1); CREATININE 0.55 mg/dL (0.7-1.3)
[2017-12-16 06:45] LABS: MD YES
[2017-12-16 06:47] LABS: EOS#(MANUAL) 0.28 x10^3/uL (0.0-0.4); EOS% (MANUAL) 5 % (1-7); LYMPHS% (MANUAL) 40 % (22-44); MONOS#(MANUAL) 0.66 x10^3/uL (0.3-2.7); MONOS% (MANUAL) 12 % (2-9); SEG#(MANUAL) 2.37 x10^3/uL (1.8-6.8); SEGS% (MANUAL) 43 % (42-75)
[2017-12-16 06:49] LABS: <PLATELET ESTIMATE> DECREASED; ANISOCYTOSIS 1+; LARGE PLATELETS 1+; MICROCYTOSIS 1+; POLYCHROMASIA 1+
[2017-12-16 07:57] VITALS: BP 133/88
[2017-12-16] MEDS: MULTIVITAMIN 1 TABLET PO SCH (08:59)
[2017-12-16] MEDS: THIAMINE 100MG TABLET PO SCH (08:59)
[2017-12-16] MEDS: PHENOBARBITAL 20 MG/5 ML ORAL SOL PO SCH (08:59)
[2017-12-16] MEDS: CEFDINIR 300 MG CAPSULE PO SCH (08:59)
[2017-12-16] MEDS: OXYcodone IR 5MG TABLET PO PRN (09:03)
[2017-12-16] MEDS: prednisOLONE 15 MG/5 ML ORAL SOLN PO SCH (10:39)
[2017-12-16 13:33] VITALS: BP 147/97
[2017-12-16] MEDS ORDERED: CEFD300C37 PO (14:00)
[2017-12-16] MEDS ORDERED: PRED15SO3 PO (14:00)
[2017-12-17] MEDS ORDERED: PHENOBARBITAL 20 MG/5 ML ORAL SOL PO SCH (09:00)
[2017-12-18] MEDS ORDERED: PHENOBARBITAL 20 MG/5 ML ORAL SOL PO SCH (09:00)
== END 2017-12-16 16:21 | disposition home or self-care (01) | DRG 871 ==
LOC: ED 16:43 → EDIP 16:48 → CCU 18:32 → 4WST 12-14 11:59
PROVIDERS: ADMIT Internal Medicine; ATTEND Internal Medicine
DX: A41.9 Sepsis, unspecified organism (principal); J96.00 Acute respiratory failure, unspecified whether with hypoxia or hypercapnia; E43 Unspecified severe protein-calorie malnutrition; G93.40 Encephalopathy, unspecified; J15.9 Unspecified bacterial pneumonia; D69.59 Other secondary thrombocytopenia; K86.1 Other chronic pancreatitis; F10.239 Alcohol dependence with withdrawal, unspecified; S22.32XA Fracture of one rib, left side, initial encounter for closed fracture; W01.0XXA Fall on same level from slipping, tripping and stumbling without subsequent striking against object, initial encounter; D64.9 Anemia, unspecified; E16.2 Hypoglycemia, unspecified; E87.6 Hypokalemia; F17.200 Nicotine dependence, unspecified, uncomplicated; I10 Essential (primary) hypertension; E55.9 Vitamin D deficiency, unspecified; Y93.02 Activity, running; Z83.3 Family history of diabetes mellitus; Z90.49 Acquired absence of other specified parts of digestive tract; Y92.89 Other specified places as the place of occurrence of the external cause; Y99.8 Other external cause status
CPT/HCPCS: 36415; 36600; 71045; 80053; 80202; 81001; 81003; 82803; 83605; 83735; 84100; 84145; 85025; 85610; 87040; 87070; 87081; 87205; 87400; 93005; 94640; 96361; 96365; J0696; J1650; J1940; J2405; J2543; J2560; J3010; J3370; J3411; J7613; J3475; J3480; J7030; J7050; J7510

== ENCOUNTER 2017-12-26 16:43 | Emergency (ER) | payer MEDICAID ==
[~2017-12-26] VITALS: Ht 177.8 cm; Wt 82.0 kg
[~2017-12-26 16:43] MED LIST changes: +CEFD300C37 PO; +PRED15SO3 PO
[2017-12-26 17:45] LABS: BASOPHILS # (AUTO) 0.12 x10^3/uL (0-0.1); BASOPHILS % (AUTO) 2 % (0-1); EOSINOPHILS # (AUTO) 0.21 x10^3/uL (0-0.4); EOSINOPHILS % (AUTO) 3 % (1-7); LYMPHOCYTES # (AUTO) 3.17 x10^3/uL (1-3.4); LYMPHOCYTES % (AUTO) 47 % (22-44); MD NO; MEAN CORPUSCULAR HEMOGLOBIN 25.5 pg (27.5-34.5); MEAN CORPUSCULAR HGB CONC 32.2 g/dL (33.2-36.2); MEAN CORPUSCULAR VOLUME 79.3 fL (81-97); MONOCYTES # (AUTO) 0.34 x10^3/uL (0.2-0.8); MONOCYTES % (AUTO) 5 % (2-9); NEUTROPHILS # (AUTO) 2.98 x10^3/uL (1.8-6.8); NEUTROPHILS % (AUTO) 44 % (42-75); PLATELET COUNT 392 x10^3/uL (130-400); RED BLOOD COUNT 4.51 x10^6/uL (4.38-5.82); RED CELL DISTRIBUTION WIDTH 22.7 % (9.4-14.8)
[2017-12-26 17:49] LABS: ALANINE AMINOTRANSFERASE 49 U/L (12-78); ALBUMIN 3.3 g/dL (3.4-5.0); ANION GAP 9 mmol/L (5-15); CHLORIDE 110 mmol/L (98-107); CREATININE 0.61 mg/dL (0.7-1.3)
[2017-12-26 17:51] LABS: SALICYLATE LEVEL < 1.7 mg/dL (2.8-20.0)
[2017-12-26 17:57] LABS: ALKALINE PHOSPHATASE 93 U/L (45-117); BILIRUBIN,TOTAL 0.4 mg/dL (0.2-1.0); TOTAL PROTEIN 8.8 g/dL (6.4-8.2)
[2017-12-26 17:59] LABS: ACETAMINOPHEN < 2 mcg/mL (10-30)
[2017-12-27 00:01] VITALS: BP 110/64
== END 2017-12-27 00:03 | disposition home or self-care (01) ==
LOC: ED 21:36
DX: S20.211A Contusion of right front wall of thorax, initial encounter (principal); F10.229 Alcohol dependence with intoxication, unspecified; W18.39XA Other fall on same level, initial encounter; Y93.89 Activity, other specified; Y92.89 Other specified places as the place of occurrence of the external cause; Y99.8 Other external cause status
CPT/HCPCS: 36415; 70450; 71045; 80053; 80307; 80329; 83690; 85025; 99285; G0480

== ENCOUNTER 2018-02-02 19:21 | Emergency (ER) | payer MEDICAID ==
[~2018-02-02] VITALS: Ht 167.6 cm; Wt 85.0 kg
[2018-02-02 19:50] LABS: BASOPHILS # (AUTO) 0.08 x10^3/uL (0-0.1); BASOPHILS % (AUTO) 2 % (0-1); EOSINOPHILS % (AUTO) 2 % (1-7); LYMPHOCYTES % (AUTO) 52 % (22-44); MD NO; MEAN CORPUSCULAR HEMOGLOBIN 26.1 pg (27.5-34.5); MEAN CORPUSCULAR HGB CONC 32.7 g/dL (33.2-36.2); MEAN CORPUSCULAR VOLUME 79.9 fL (81-97); MEAN PLATELET VOLUME 8.6 fL (7.4-10.4); MONOCYTES # (AUTO) 0.37 x10^3/uL (0.2-0.8); MONOCYTES % (AUTO) 8 % (2-9); NEUTROPHILS # (AUTO) 1.57 x10^3/uL (1.8-6.8); NEUTROPHILS % (AUTO) 36 % (42-75); PLATELET COUNT 175 x10^3/uL (130-400); RED BLOOD COUNT 4.35 x10^6/uL (4.38-5.82); RED CELL DISTRIBUTION WIDTH 21.6 % (9.4-14.8)
[2018-02-02 20:01] LABS: ALBUMIN 3.3 g/dL (3.4-5.0); ANION GAP 9 mmol/L (5-15); CALCIUM 8.2 mg/dL (8.5-10.1); CHLORIDE 107 mmol/L (98-107); CREATININE 0.74 mg/dL (0.7-1.3)
[2018-02-02 23:56] VITALS: BP 118/68
== END 2018-02-02 23:58 | disposition home or self-care (01) ==
LOC: ED 22:25
DX: F10.220 Alcohol dependence with intoxication, uncomplicated (principal); I10 Essential (primary) hypertension; F17.200 Nicotine dependence, unspecified, uncomplicated; Z90.49 Acquired absence of other specified parts of digestive tract
CPT/HCPCS: 36415; 80048; 80307; 82040; 85025; 99284

== ENCOUNTER 2018-09-13 18:41 | Emergency (ER) | payer MEDICAID ==
[~2018-09-13] VITALS: Ht 167.6 cm; Wt 85.0 kg
[~2018-09-13 18:41] MED LIST changes: -THIA100T6 PO; +THIA100T67 PO
[2018-09-13 20:34] VITALS: BP 94/54
== END 2018-09-14 00:40 | disposition home or self-care (01) ==
LOC: ED 21:52
DX: F10.220 Alcohol dependence with intoxication, uncomplicated (principal); I10 Essential (primary) hypertension; F32.9 Major depressive disorder, single episode, unspecified; Z90.49 Acquired absence of other specified parts of digestive tract
CPT/HCPCS: 99283

== ENCOUNTER 2018-10-07 12:28 | Emergency (ER) | payer MEDICAID ==
[~2018-10-07] VITALS: Ht 167.6 cm; Wt 83.0 kg
[2018-10-07 14:11] LABS: MEAN CORPUSCULAR HEMOGLOBIN 27.5 pg (27.5-34.5); MEAN CORPUSCULAR HGB CONC 32.4 g/dL (33.2-36.2); MEAN CORPUSCULAR VOLUME 84.8 fL (81-97); MEAN PLATELET VOLUME 7.7 fL (7.4-10.4); PLATELET COUNT 202 x10^3/uL (130-400); RED BLOOD COUNT 4.33 x10^6/uL (4.38-5.82); RED CELL DISTRIBUTION WIDTH 19.6 % (9.4-14.8)
[2018-10-07 14:16] LABS: ALANINE AMINOTRANSFERASE 49 U/L (12-78); ALBUMIN 3.6 g/dL (3.4-5.0); ANION GAP 13 mmol/L (5-15); CALCIUM 8.2 mg/dL (8.5-10.1); CHLORIDE 107 mmol/L (98-107); CREATININE 0.67 mg/dL (0.7-1.3)
[2018-10-07 14:22] LABS: ALKALINE PHOSPHATASE 85 U/L (45-117); BILIRUBIN,TOTAL 0.5 mg/dL (0.2-1.0); TOTAL PROTEIN 8.7 g/dL (6.4-8.2)
[2018-10-07 14:27] LABS: BASOPHILS # (AUTO) 0.03 x10^3/uL (0-0.1); BASOPHILS % (AUTO) 1 % (0-1); EOSINOPHILS # (AUTO) 0.01 x10^3/uL (0-0.4); EOSINOPHILS % (AUTO) 0 % (1-7); LYMPHOCYTES # (AUTO) 2.13 x10^3/uL (1-3.4); LYMPHOCYTES % (AUTO) 57 % (22-44); MD SCAN; MONOCYTES # (AUTO) 0.22 x10^3/uL (0.2-0.8); MONOCYTES % (AUTO) 6 % (2-9); NEUTROPHILS # (AUTO) 1.33 x10^3/uL (1.8-6.8); NEUTROPHILS % (AUTO) 36 % (42-75)
[2018-10-07 15:08] VITALS: BP 112/72
[2018-10-07 15:11] LABS: AMPHETAMINE SCREEN, URINE Negative (Negative); BARBITURATE SCREEN, URINE Positive (Negative); BENZODIAZEPINE SCREEN, URINE Positive (Negative); CANNABINOID SCREEN, URINE Negative (Negative); COCAINE SCREEN, URINE Negative (Negative); METHADONE SCREEN, URINE Negative (Negative); OPIATE SCREEN, URINE Negative (Negative)
== END 2018-10-07 15:28 | disposition home or self-care (01) ==
LOC: ED 14:33
DX: F10.220 Alcohol dependence with intoxication, uncomplicated (principal); I10 Essential (primary) hypertension; F32.9 Major depressive disorder, single episode, unspecified; Z72.9 Problem related to lifestyle, unspecified
CPT/HCPCS: 36415; 80053; 80307; 85025; 99283

== ENCOUNTER 2019-03-16 09:23 | Inpatient (IN) | payer MEDICAID ==
[~2019-03-16] VITALS: Ht 167.6 cm; Wt 85.6 kg
--- NOTE | 2019-03-16 09:50 | NUR ---
pt to room from lobby, changed into gown, ERP at BS; cardiac, NIBP & SpO2 monitors in place.
[2019-03-16] MEDS ORDERED: SODIUM CHLORIDE FLUSH 10ML SYR IVF ONE (10:00)
[2019-03-16] MEDS ORDERED: ONDANSETRON 2MG/ML, 2ML ONE (10:00)
[2019-03-16] MEDS ORDERED: THIAMINE 100MG TABLET PO ONE (10:00)
[2019-03-16] MEDS ORDERED: ONDANSETRON 2MG/ML, 2ML IVPush ONE (10:00)
[2019-03-16] MEDS ORDERED: LORazepam 2 MG/ML, 1ML ONE ×2 (10:01→11:00)
[2019-03-16] MEDS ORDERED: THIAMINE 100MG TABLET ONE (10:01)
[2019-03-16] MEDS: LORazepam 2 MG/ML, 1ML IVPush PRN ×3 (10:05→11:04)
[2019-03-16 10:36] LABS: MEAN CORPUSCULAR HEMOGLOBIN 28.3 pg (27.5-34.5); MEAN CORPUSCULAR HGB CONC 33.1 g/dL (33.2-36.2); MEAN CORPUSCULAR VOLUME 85.7 fL (81-97); MEAN PLATELET VOLUME 8.3 fL (7.4-10.4); PLATELET COUNT 115 x10^3/uL (130-400); RED BLOOD COUNT 4.83 x10^6/uL (4.38-5.82)
[2019-03-16 10:41] LABS: ALBUMIN 3.5 g/dL (3.4-5.0); CALCIUM 8.3 mg/dL (8.5-10.1); CHLORIDE 97 mmol/L (98-107)
[2019-03-16 10:46] LABS: ALANINE AMINOTRANSFERASE 363 U/L (12-78); ALKALINE PHOSPHATASE 72 U/L (45-117); BILIRUBIN,TOTAL 1.8 mg/dL (0.2-1.0); CREATININE 0.96 mg/dL (0.7-1.3); TOTAL PROTEIN 7.9 g/dL (6.4-8.2); TROPONIN I < 0.015 ng/mL (0.000-0.045)
[2019-03-16 10:50] LABS: ANION GAP 25 mmol/L (5-15)
[2019-03-16 11:00] LABS: BASOPHILS % (AUTO) 0 % (0-1); EOSINOPHILS % (AUTO) 0 % (1-7); LYMPHOCYTES # (AUTO) 0.64 x10^3/uL (1-3.4); LYMPHOCYTES % (AUTO) 22 % (22-44); MD SCAN; MONOCYTES # (AUTO) 0.14 x10^3/uL (0.2-0.8); MONOCYTES % (AUTO) 5 % (2-9); NEUTROPHILS # (AUTO) 2.12 x10^3/uL (1.8-6.8); NEUTROPHILS % (AUTO) 73 % (42-75)
[2019-03-16] MEDS ORDERED: SODIUM CHLORIDE 0.9% 1,000ML IVBOLUS ONE (11:00)
--- NOTE | 2019-03-16 11:03 | NUR ---
pt upright on gurney awake, calmer & less tremulous after ativan, responds approp to staff, NAD, comfort measures provided, call light within reach.
--- NOTE | 2019-03-16 12:08 | NUR ---
TASK/BREAK RN: HOSPITALIST BEDSIDE.
--- NOTE | 2019-03-16 12:18 | NUR ---
TASK RN: PT SLEEPING ON GURNEY. NO ACUTE DISTRESS NOTED. RESPS EQUAL AND UNLABORED. WILL CONTINUE TO MONITOR.
[2019-03-16] MEDS ORDERED: OXYcodone IR 5MG TABLET PO PRN (12:30)
[2019-03-16] MEDS ORDERED: LORazepam 2 MG/ML, 1ML IV PRN ×4 (12:30)
--- NOTE | 2019-03-16 12:36 | NUR ---
TASK RN: BEDSIDE REPORT TO CHANTE SIFUENTES
--- NOTE | 2019-03-16 12:45 | NUR ---
Pt to be admitted to [facility], room 495. Report called to Annita.
[2019-03-16 13:18] VITALS: BP 129/82
[2019-03-16] MEDS: LORazepam 1MG TABLET PO PRN ×2 (14:08→17:09)
[2019-03-16] MEDS: POTASSIUM CHLORIDE 20 MEQ, MAGNESIUM SULFATE 2 GM, THIAMINE 200 MG, MVI ADULT 10 ML, FO... IV SCH (14:16)
[2019-03-16] MEDS: CHLORDIAZEPOXIDE 10 MG CAPSULE PO SCH (17:09)
[2019-03-16 20:49] VITALS: BP 145/84
[2019-03-16] MEDS: LORazepam 0.5MG TABLET PO PRN (20:58)
[2019-03-17] MEDS: CHLORDIAZEPOXIDE 10 MG CAPSULE PO SCH ×4 (00:21→21:57)
[2019-03-17] MEDS: LORazepam 0.5MG TABLET PO PRN (00:55)
[2019-03-17 02:38] VITALS: BP 133/86
[2019-03-17 05:15] LABS: ALBUMIN 3.2 g/dL (3.4-5.0); ANION GAP 13 mmol/L (5-15); CALCIUM 7.9 mg/dL (8.5-10.1); CHLORIDE 102 mmol/L (98-107)
[2019-03-17 05:19] LABS: MEAN CORPUSCULAR HEMOGLOBIN 27.4 pg (27.5-34.5); MEAN CORPUSCULAR HGB CONC 31.8 g/dL (33.2-36.2); MEAN CORPUSCULAR VOLUME 86.1 fL (81-97); MEAN PLATELET VOLUME 8.2 fL (7.4-10.4); PLATELET COUNT 84 x10^3/uL (130-400); RED BLOOD COUNT 4.71 x10^6/uL (4.38-5.82); RED CELL DISTRIBUTION WIDTH 20.3 % (9.4-14.8)
[2019-03-17 05:20] LABS: ALANINE AMINOTRANSFERASE 292 U/L (12-78); ALKALINE PHOSPHATASE 61 U/L (45-117); BILIRUBIN,TOTAL 2.3 mg/dL (0.2-1.0); CREATININE 1.08 mg/dL (0.7-1.3); TOTAL PROTEIN 7.2 g/dL (6.4-8.2)
[2019-03-17] MEDS: LORazepam 1MG TABLET PO PRN ×4 (05:53→19:56)
[2019-03-17 05:57] LABS: BASOPHILS % (AUTO) 0 % (0-1); EOSINOPHILS # (AUTO) 0.06 x10^3/uL (0-0.4); EOSINOPHILS % (AUTO) 1 % (1-7); LYMPHOCYTES # (AUTO) 1.25 x10^3/uL (1-3.4); LYMPHOCYTES % (AUTO) 27 % (22-44); MD SCAN; MONOCYTES # (AUTO) 0.21 x10^3/uL (0.2-0.8); MONOCYTES % (AUTO) 5 % (2-9); NEUTROPHILS # (AUTO) 3.08 x10^3/uL (1.8-6.8); NEUTROPHILS % (AUTO) 67 % (42-75)
[2019-03-17 08:24] VITALS: BP 125/87
[2019-03-17 12:00] VITALS: BP 143/90
[2019-03-17] MEDS: CARVEDILOL 6.25 MG TABLET PO SCH ×2 (12:22→18:36)
[2019-03-17] MEDS: POTASSIUM CHLORIDE 20 MEQ, MAGNESIUM SULFATE 2 GM, THIAMINE 200 MG, MVI ADULT 10 ML, FO... IV SCH (12:22)
[2019-03-17 19:08] VITALS: BP 147/77
[2019-03-18 00:10] VITALS: BP 120/84
[2019-03-18] MEDS: LORazepam 1MG TABLET PO PRN ×3 (00:19→22:45)
[2019-03-18 05:13] LABS: ALBUMIN 3.1 g/dL (3.4-5.0); BILIRUBIN, DIRECT 0.9 mg/dL (0.1-0.2)
[2019-03-18 05:15] LABS: BILIRUBIN,INDIRECT 1.1 mg/dL (0.0-2.0); TOTAL PROTEIN 7.1 g/dL (6.4-8.2)
[2019-03-18 05:40] VITALS: BP 126/85
[2019-03-18] MEDS: CARVEDILOL 6.25 MG TABLET PO SCH ×2 (05:45→17:15)
[2019-03-18 08:35] VITALS: BP 112/74
[2019-03-18] MEDS: CHLORDIAZEPOXIDE 10 MG CAPSULE PO SCH ×2 (09:00→16:00)
[2019-03-18] MEDS: THIAMINE 100MG TABLET PO SCH (09:25)
[2019-03-18] MEDS: SODIUM CHLORIDE 0.9% 1,000 ML IV SCH (09:25)
[2019-03-18 10:52] LABS: MD YES; MEAN CORPUSCULAR HEMOGLOBIN 27.6 pg (27.5-34.5); MEAN CORPUSCULAR HGB CONC 32.1 g/dL (33.2-36.2); MEAN CORPUSCULAR VOLUME 85.9 fL (81-97); MEAN PLATELET VOLUME 8.5 fL (7.4-10.4); PLATELET COUNT 80 x10^3/uL (130-400)
[2019-03-18 10:55] LABS: <PLATELET ESTIMATE> DECREASED; <PLT MORPHOLOGY> NORMAL PLT MORPH; ANISOCYTOSIS 1+; BAND#(MANUAL) 0.03 x10^3/uL; BANDS%(MANUAL) 1 % (0-7); BASOS#(MANUAL) 0.03 x10^3/uL (0-0.1); BASOS% (MANUAL) 1 % (0-1); EOS#(MANUAL) 0.03 x10^3/uL (0.0-0.4); EOS% (MANUAL) 1 % (1-7); LYMPH#(MANUAL) 0.89 x10^3/uL (1-3.4); LYMPHS% (MANUAL) 33 % (22-44); MONOS#(MANUAL) 0.11 x10^3/uL (0.3-2.7); MONOS% (MANUAL) 4 % (2-9); REACTIVE LYMPHS # (MANUAL) 0.05 x10^3/uL (0-0); REACTIVE LYMPHS % (MANUAL) 2 % (0-0); SEG#(MANUAL) 1.57 x10^3/uL (1.8-6.8); SEGS% (MANUAL) 58 % (42-75)
[2019-03-18 14:30] VITALS: BP 117/70
[2019-03-18 18:31] VITALS: BP 119/80
[2019-03-18 22:43] VITALS: BP 115/81
[2019-03-19 00:11] VITALS: BP 107/74
[2019-03-19] MEDS: SODIUM CHLORIDE 0.9% 1,000 ML IV SCH ×2 (01:47→17:44)
[2019-03-19 01:51] VITALS: BP 110/75
[2019-03-19] MEDS: LORazepam 1MG TABLET PO PRN ×8 (01:56→23:56)
[2019-03-19] MEDS: CARVEDILOL 6.25 MG TABLET PO SCH ×2 (05:48→17:42)
[2019-03-19 05:52] VITALS: BP 117/84
[2019-03-19 08:10] VITALS: BP 114/82
[2019-03-19] MEDS: THIAMINE 100MG TABLET PO SCH (08:53)
[2019-03-19 12:43] VITALS: BP 113/79
[2019-03-19 18:46] VITALS: BP 119/79
[2019-03-19] MEDS ORDERED: LORazepam 0.5MG TABLET ONE (23:55)
[2019-03-20 00:18] VITALS: BP 125/83
[2019-03-20 05:55] VITALS: BP 130/88
[2019-03-20] MEDS: CARVEDILOL 6.25 MG TABLET PO SCH (05:56)
[2019-03-20 07:10] VITALS: BP 126/90
[2019-03-20] MEDS ORDERED: THIA100T67 PO (09:08)
[2019-03-20] MEDS ORDERED: CARV6.2512 PO (09:08)
[2019-03-20] MEDS: THIAMINE 100MG TABLET PO SCH (09:58)
== END 2019-03-20 11:34 | disposition home or self-care (01) | DRG 432 ==
LOC: ED 10:59 → EDIP 11:52 → 4EST 13:13 → DCLOUNGE 03-20 11:20
PROVIDERS: ADMIT Internal Medicine; ATTEND Internal Medicine
DX: K70.10 Alcoholic hepatitis without ascites (principal); K85.20 Alcohol induced acute pancreatitis without necrosis or infection; D61.818 Other pancytopenia; F10.239 Alcohol dependence with withdrawal, unspecified; G40.509 Epileptic seizures related to external causes, not intractable, without status epilepticus; D63.8 Anemia in other chronic diseases classified elsewhere; E86.0 Dehydration; F17.200 Nicotine dependence, unspecified, uncomplicated; I10 Essential (primary) hypertension; G47.00 Insomnia, unspecified; K21.9 Gastro-esophageal reflux disease without esophagitis; Z82.49 Family history of ischemic heart disease and other diseases of the circulatory system; Z83.3 Family history of diabetes mellitus; Z90.49 Acquired absence of other specified parts of digestive tract
CPT/HCPCS: 36415; 96361; 99285; J7042; 80053; 80076; 82962; 83690; 83735; 84484; 85025; 93005; 96374; G0378; J2405; J3411; J3475; J3480; J2060; J7030

== ENCOUNTER 2020-01-30 21:34 | Emergency (ER) | payer SELFPAY ==
[~2020-01-30] VITALS: Ht 170.2 cm; Wt 81.8 kg
[~2020-01-30 21:34] MED LIST changes: +AMBIEN; +CARV6.2512 PO; +LORA2TAB99 PO; +ZOLOFT
[2020-01-30 22:21] LABS: ALANINE AMINOTRANSFERASE 54 U/L (12-78); ANION GAP 8 mmol/L (5-15); CALCIUM 7.7 mg/dL (8.5-10.1); CHLORIDE 106 mmol/L (98-107)
[2020-01-30 22:24] LABS: ALKALINE PHOSPHATASE 73 U/L (45-117); BILIRUBIN,TOTAL 0.5 mg/dL (0.2-1.0); CREATININE 0.87 mg/dL (0.7-1.3); TOTAL PROTEIN 8.1 g/dL (6.4-8.2)
[2020-01-30 22:50] LABS: MEAN CORPUSCULAR HEMOGLOBIN 27.5 pg (27.5-34.5); MEAN CORPUSCULAR HGB CONC 32.4 g/dL (33.2-36.2); MEAN CORPUSCULAR VOLUME 84.9 fL (81-97); MEAN PLATELET VOLUME 6.9 fL (7.4-10.4); PLATELET COUNT 149 x10^3/uL (130-400); RED BLOOD COUNT 4.47 x10^6/uL (4.38-5.82); RED CELL DISTRIBUTION WIDTH 22.2 % (9.4-14.8)
[2020-01-30 22:51] LABS: MD YES
[2020-01-30 22:54] LABS: EOS#(MANUAL) 0.12 x10^3/uL (0.0-0.4); EOS% (MANUAL) 3 % (1-7); LYMPHS% (MANUAL) 56 % (22-44); MONOS#(MANUAL) 0.45 x10^3/uL (0.3-2.7); MONOS% (MANUAL) 11 % (2-9); SEG#(MANUAL) 1.23 x10^3/uL (1.8-6.8); SEGS% (MANUAL) 30 % (42-75)
[2020-01-30 22:55] LABS: ANISOCYTOSIS 1+
[2020-01-30 22:56] LABS: <PLATELET ESTIMATE> ADEQUATE; SMALL PLATELETS 1+
--- NOTE | 2020-01-30 23:00 | NUR ---
PT RESTING WITH EYES CLOSED. EQUAL CHEST RISE. PT RESPONDS TO VERBAL STIMULI.
--- NOTE | 2020-01-31 00:10 | NUR ---
PT GIVEN WATER. ABLE TO DRINK WITH NO COUGHING/CHOKING. PT RESTING COMFORTABLY.
[2020-01-31 00:13] VITALS: BP 115/78
--- NOTE | 2020-01-31 01:52 | NUR ---
PT RESTING WITH EYES CLOSED. EQUAL CHEST RISE NOTED.
--- NOTE | 2020-01-31 02:55 | NUR ---
PT STANDING AT BEDSIDE UNABLE TO KEEP BALANCE. PLACED BACK TO BED.
--- NOTE | 2020-01-31 04:13 | NUR ---
PT RESTING WITH EYES CLOSED. EQUAL CHEST RISE NOTED.
--- NOTE | 2020-01-31 04:20 | NUR ---
PT AMBULATED TO BR AND BACK TO RM WITH A STEADY GAIT. PT A&O 4. PT UP FOR DC.
== END 2020-01-31 04:39 ==
LOC: ED 23:58
DX: F10.129 Alcohol abuse with intoxication, unspecified (principal); Z72.9 Problem related to lifestyle, unspecified; R51 Headache; R50.9 Fever, unspecified; Y90.9 Presence of alcohol in blood, level not specified; I10 Essential (primary) hypertension; F17.200 Nicotine dependence, unspecified, uncomplicated; R10.9 Unspecified abdominal pain
CPT/HCPCS: 36415; 80053; 80307; 83690; 85025; 99283

== ENCOUNTER 2020-02-21 21:11 | Emergency (ER) | payer MEDICAID ==
[~2020-02-21] VITALS: Ht 167.6 cm; Wt 85.8 kg
[~2020-02-21 21:11] MED LIST changes: +SERT50TA PO; +TRAZ-96 PO
--- NOTE | 2020-02-21 21:28 | NUR ---
THIS IS A 44 YO MALE BIB [facility] FROM [facility] FOR ABD PAIN. PATIENT WAS SUPPOSED TO BE ADMITTED THERE FOR ETOH DETOX, THEN C/O ABD PAIN. SENT HERE FOR MEDICAL CLEARANCE, PATIENT TO BE GOING BACK TO [facility] AFTER MEDICALLY CLEARED. PATIENT C/O BILATERAL LOWER QUADRANT ABD PAIN, NO RADIATION, TENDER TO PALPATION, NON DISTENDED. HX PANCREATITIS. PATIENT DENIES SI/HI. SPO2 AND BP MONITORING IN PLACE. CALL LIGHT IN REACH
[2020-02-21] MEDS ORDERED: FAMOTIDINE 20 MG TABLET PO ONE (21:30)
[2020-02-21 21:32] LABS: MEAN CORPUSCULAR HEMOGLOBIN 28.2 pg (27.5-34.5); MEAN CORPUSCULAR HGB CONC 32.4 g/dL (33.2-36.2); MEAN CORPUSCULAR VOLUME 86.8 fL (81-97); MEAN PLATELET VOLUME 7.4 fL (7.4-10.4); PLATELET COUNT 238 x10^3/uL (130-400); RED BLOOD COUNT 4.75 x10^6/uL (4.38-5.82); RED CELL DISTRIBUTION WIDTH 20.9 % (9.4-14.8)
[2020-02-21] MEDS ORDERED: FAMOTIDINE 20 MG TABLET ONE (21:32)
--- NOTE | 2020-02-21 21:36 | NUR ---
PATIENT MEDICATED PER EMAR, TOLERATED WELL. GIVEN URINAL TO USE TO GIVE URINE SAMPLE
[2020-02-21 21:43] LABS: ALANINE AMINOTRANSFERASE 69 U/L (12-78); ALBUMIN 3.4 g/dL (3.4-5.0); ANION GAP 7 mmol/L (5-15); CALCIUM 8.1 mg/dL (8.5-10.1); CHLORIDE 107 mmol/L (98-107); CREATININE 0.92 mg/dL (0.7-1.3)
[2020-02-21 21:45] LABS: ALKALINE PHOSPHATASE 81 U/L (45-117); BILIRUBIN,TOTAL 0.3 mg/dL (0.2-1.0); TOTAL PROTEIN 8.4 g/dL (6.4-8.2)
[2020-02-21 21:48] LABS: BASOPHILS # (AUTO) 0.04 x10^3/uL (0-0.1); BASOPHILS % (AUTO) 1 % (0-1); EOSINOPHILS # (AUTO) 0.02 x10^3/uL (0-0.4); EOSINOPHILS % (AUTO) 1 % (1-7); LYMPHOCYTES # (AUTO) 1.96 x10^3/uL (1-3.4); LYMPHOCYTES % (AUTO) 59 % (22-44); MD SCAN; MONOCYTES # (AUTO) 0.29 x10^3/uL (0.2-0.8); MONOCYTES % (AUTO) 9 % (2-9); NEUTROPHILS % (AUTO) 30 % (42-75)
--- NOTE | 2020-02-21 22:30 | NUR ---
PATIENT RESTING ON TAM GONZALEZ NAD AT THIS TIME, URINAL AT BEDSIDE. PATIENT EDUCATED ON NEED FOR URINE SAMPLE
--- NOTE | 2020-02-21 23:03 | NUR ---
CALL PLACED TO [facility], THEY ARE TO ACCEPT HIM AFTER MEDICAL CLEARANCE FAXED
--- NOTE | 2020-02-21 23:08 | NUR ---
UA COLLECTED AND SENT
[2020-02-21 23:21] LABS: MICROSCOPIC NOT IND
[2020-02-21 23:28] LABS: CULTURE INDICATED? NO
[2020-02-22] VITALS: BP 118/67
--- NOTE | 2020-02-22 00:08 | NUR ---
PATIENT AMBULATORY WITH STEADY GAIT IN ROOM
--- NOTE | 2020-02-22 02:03 | NUR ---
PATIENT CHART FAXED TO [facility] PER [facility] REQUEST FOR MEDICAL CLEARANCE
--- NOTE | 2020-02-22 02:29 | NUR ---
Patient given discharge instructions and they have confirmed that they understand the instructions. Patient ambulatory with steady gait.
== END 2020-02-22 02:36 | disposition home or self-care (01) ==
LOC: ED 21:29
DX: K85.20 Alcohol induced acute pancreatitis without necrosis or infection (principal); K29.20 Alcoholic gastritis without bleeding; F10.10 Alcohol abuse, uncomplicated; Y90.9 Presence of alcohol in blood, level not specified; I10 Essential (primary) hypertension; F17.200 Nicotine dependence, unspecified, uncomplicated
CPT/HCPCS: 36415; 80053; 80307; 81003; 83690; 85025; 99283

== ENCOUNTER 2020-07-08 23:29 | Emergency (ER) | payer MEDICAID ==
[~2020-07-08] VITALS: Ht 167.6 cm; Wt 85.0 kg
[~2020-07-08 23:29] MED LIST changes: +MULT-449 PO; -MULT1TAB60 PO; -PANT40TA5 PO; +PANT40TA6 PO
[2020-07-08 23:34] VITALS: BP 139/88
[2020-07-09] MEDS ORDERED: ONDANSETRON 2MG/ML, 2ML IVPush ONE
[2020-07-09 00:17] LABS: BASOPHILS # (AUTO) 0.04 x10^3/uL (0-0.1); BASOPHILS % (AUTO) 1 % (0-1); EOSINOPHILS # (AUTO) 0.02 x10^3/uL (0-0.4); EOSINOPHILS % (AUTO) 1 % (1-7); LYMPHOCYTES # (AUTO) 2.06 x10^3/uL (1-3.4); LYMPHOCYTES % (AUTO) 47 % (22-44); MD NO; MEAN CORPUSCULAR HEMOGLOBIN 30.5 pg (27.5-34.5); MEAN CORPUSCULAR HGB CONC 33.1 g/dL (33.2-36.2); MEAN CORPUSCULAR VOLUME 92.2 fL (81-97); MEAN PLATELET VOLUME 7.1 fL (7.4-10.4); MONOCYTES # (AUTO) 0.19 x10^3/uL (0.2-0.8); MONOCYTES % (AUTO) 4 % (2-9); NEUTROPHILS # (AUTO) 2.07 x10^3/uL (1.8-6.8); NEUTROPHILS % (AUTO) 47 % (42-75); PLATELET COUNT 185 x10^3/uL (130-400); RED BLOOD COUNT 4.86 x10^6/uL (4.38-5.82); RED CELL DISTRIBUTION WIDTH 20.3 % (9.4-14.8)
[2020-07-09 00:28] LABS: ALANINE AMINOTRANSFERASE 121 U/L (12-78); ALBUMIN 3.6 g/dL (3.4-5.0); ANION GAP 10 mmol/L (5-15); CALCIUM 7.7 mg/dL (8.5-10.1); CHLORIDE 104 mmol/L (98-107); CREATININE 0.89 mg/dL (0.7-1.3)
--- NOTE | 2020-07-09 00:28 | NUR ---
Provider at bedside
[2020-07-09 00:32] LABS: ALKALINE PHOSPHATASE 83 U/L (45-117); BILIRUBIN,TOTAL 0.9 mg/dL (0.2-1.0); TOTAL PROTEIN 8.7 g/dL (6.4-8.2); TROPONIN I < 0.015 ng/mL (0.000-0.045)
[2020-07-09] MEDS ORDERED: LORazepam 0.5MG TABLET ONE (03:13)
[2020-07-09] MEDS ORDERED: ONDANSETRON ODT 4 MG ONE (03:13)
[2020-07-09] MEDS ORDERED: LORazepam 0.5MG TABLET PO ONE (03:30)
== END 2020-07-09 04:00 | disposition home or self-care (01) ==
LOC: ED 07-09 02:55
DX: F10.120 Alcohol abuse with intoxication, uncomplicated (principal); R07.89 Other chest pain; R94.31 Abnormal electrocardiogram [ECG] [EKG]; R10.9 Unspecified abdominal pain; F17.200 Nicotine dependence, unspecified, uncomplicated; I10 Essential (primary) hypertension; Z90.49 Acquired absence of other specified parts of digestive tract; Y90.0 Blood alcohol level of less than 20 mg/100 ml
CPT/HCPCS: 36415; 71045; 80053; 80307; 83690; 84484; 85025; 93005; 99285

== ENCOUNTER 2020-07-26 16:16 | Emergency (ER) | payer MEDICAID ==
[~2020-07-26] VITALS: Ht 167.6 cm; Wt 85.1 kg
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
--- NOTE | 2020-07-26 17:25 | NUR ---
PATIENT TO XRAY
[2020-07-26] MEDS ORDERED: SODIUM CHLORIDE FLUSH 10ML SYR IVF ONE (17:30)
[2020-07-26] MEDS ORDERED: SODIUM CHLORIDE 0.9% 1,000ML IVBOLUS ONE (17:30)
--- NOTE | 2020-07-26 17:35 | NUR ---
PATIENT BACK FROM XRAY, DESAT TO 86% WHILE STARTING TO FALL ASLEEP, PLACED ON 2L NC. SPO2 AT 96% ON 2L
[2020-07-26 17:41] LABS: ALANINE AMINOTRANSFERASE 191 U/L (12-78); ALBUMIN 3.2 g/dL (3.4-5.0); ANION GAP 11 mmol/L (5-15); CALCIUM 8.6 mg/dL (8.5-10.1); CHLORIDE 102 mmol/L (98-107); CREATININE 0.86 mg/dL (0.7-1.3)
[2020-07-26 17:44] LABS: ALKALINE PHOSPHATASE 78 U/L (45-117); BILIRUBIN,TOTAL 1.3 mg/dL (0.2-1.0); TOTAL PROTEIN 7.6 g/dL (6.4-8.2)
--- NOTE | 2020-07-26 17:54 | NUR ---
PATIENT SLIGHTLY TACHYCARDIC AT 106, TREMORS NOTED WHEN PATIENT EXTENDS ARMS. CIWA ASSESSMENT COMPLETED. WILL NOTIFY ERP
[2020-07-26 18:03] LABS: MEAN CORPUSCULAR HEMOGLOBIN 31.5 pg (27.5-34.5); MEAN CORPUSCULAR HGB CONC 33.6 g/dL (33.2-36.2); RED CELL DISTRIBUTION WIDTH 17.5 % (9.4-14.8)
[2020-07-26 18:04] LABS: MEAN PLATELET VOLUME 7.4 fL (7.4-10.4); PLATELET COUNT 75 x10^3/uL (130-400)
[2020-07-26 18:06] LABS: MD YES
[2020-07-26 18:10] LABS: BAND#(MANUAL) 0.05 x10^3/uL; BANDS%(MANUAL) 2 % (0-7); BASOS#(MANUAL) 0.05 x10^3/uL (0-0.1); BASOS% (MANUAL) 2 % (0-1); EOS#(MANUAL) 0.02 x10^3/uL (0.0-0.4); EOS% (MANUAL) 1 % (1-7); LYMPH#(MANUAL) 1.25 x10^3/uL (1-3.4); LYMPHS% (MANUAL) 52 % (22-44); MONOS#(MANUAL) 0.22 x10^3/uL (0.3-2.7); MONOS% (MANUAL) 9 % (2-9); SEG#(MANUAL) 0.82 x10^3/uL (1.8-6.8); SEGS% (MANUAL) 34 % (42-75)
[2020-07-26 18:12] LABS: <PLATELET ESTIMATE> DECREASED; <PLT MORPHOLOGY> NORMAL PLT MORPH; ANISOCYTOSIS 1+
[2020-07-26] MEDS ORDERED: LORazepam 2 MG/ML, 1ML ONE (18:12)
--- NOTE | 2020-07-26 18:19 | NUR ---
PATIENT MEDICATED PER EMAR FOR ETOH WITHDRAWL SYMPTOMS.
[2020-07-26] MEDS ORDERED: LORazepam 2 MG/ML, 1ML IVPush PRN (18:30)
--- NOTE | 2020-07-26 18:45 | NUR ---
TITRATING O2 DOWN TO 1L, SPO2 AT 94%
--- NOTE | 2020-07-26 19:30 | NUR ---
PATIENT MAINTAINS SPO2 >90% ON RA
[2020-07-26 20:00] VITALS: BP 106/58
--- NOTE | 2020-07-26 20:14 | NUR ---
Patient given discharge instructions and they have confirmed that they understand the instructions. Patient ambulatory with steady gait.
== END 2020-07-26 20:16 | disposition home or self-care (01) ==
LOC: ED 18:09
DX: M25.562 Pain in left knee (principal); M25.561 Pain in right knee; M25.572 Pain in left ankle and joints of left foot; M25.571 Pain in right ankle and joints of right foot; K70.10 Alcoholic hepatitis without ascites; F10.220 Alcohol dependence with intoxication, uncomplicated; M25.552 Pain in left hip; M25.551 Pain in right hip; M79.651 Pain in right thigh; M79.652 Pain in left thigh; G89.29 Other chronic pain; I10 Essential (primary) hypertension
CPT/HCPCS: 36415; 72110; 80053; 80307; 85025; 96361; 96374; 99285; J2060; J7030

== ENCOUNTER 2020-07-27 23:25 | Emergency (ER) | payer MEDICAID ==
[~2020-07-27] VITALS: Ht 167.6 cm; Wt 88.6 kg
--- NOTE | 2020-07-27 23:30 | NUR ---
45/M. ETOH. Came here from [facility]. Breathlyzer blew .35. [facility] to send pt to ED. Pt states he is waiting for placement at a rehab in [facility], but has to wait a week. Pt is interested in getting help for ETOH abuse. Reports drinking 1 pint of vodka and some beer today.
[2020-07-28 02:38] VITALS: BP 105/69
--- NOTE | 2020-07-28 03:55 | NUR ---
Pt ambulatory at discharge. Pt provided a taxi vouchure for safe discharge.
== END 2020-07-28 03:57 | disposition home or self-care (01) ==
LOC: ED 07-28 00:44
DX: F10.220 Alcohol dependence with intoxication, uncomplicated (principal); I10 Essential (primary) hypertension; Y90.0 Blood alcohol level of less than 20 mg/100 ml
CPT/HCPCS: 99283

== ENCOUNTER 2020-09-05 14:38 | Emergency (ER) | payer MEDICAID ==
[~2020-09-05] VITALS: Ht 167.6 cm; Wt 85.0 kg
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
--- NOTE | 2020-09-05 16:28 | NUR ---
PT SLEEPING RESP EVEN AND UNLABORED
[2020-09-05 16:45] LABS: BASOPHILS % (AUTO) 1 % (0-1); EOSINOPHILS % (AUTO) 0 % (1-7); LYMPHOCYTES % (AUTO) 12 % (22-44); MEAN PLATELET VOLUME 8.3 fL (7.4-10.4); MONOCYTES % (AUTO) 12 % (2-9); NEUTROPHILS % (AUTO) 75 % (42-75); PLATELET COUNT 332 x10^3/uL (130-400); RED BLOOD COUNT 3.69 x10^6/uL (4.38-5.82); RED CELL DISTRIBUTION WIDTH 16.9 % (9.4-14.8)
[2020-09-05 16:46] LABS: MD NO
[2020-09-05 16:55] LABS: ALANINE AMINOTRANSFERASE 100 U/L (12-78); ALBUMIN 2.3 g/dL (3.4-5.0); ANION GAP 11 mmol/L (5-15); CALCIUM 7.8 mg/dL (8.5-10.1); CHLORIDE 104 mmol/L (98-107); CREATININE 0.85 mg/dL (0.7-1.3)
[2020-09-05 16:57] LABS: ALKALINE PHOSPHATASE 72 U/L (45-117); BILIRUBIN,TOTAL 0.5 mg/dL (0.2-1.0); TOTAL PROTEIN 7.9 g/dL (6.4-8.2)
[2020-09-05] MEDS ORDERED: LIDOCAINE-MPF 1%, 5ML INFIL ONE (17:00)
[2020-09-05] MEDS ORDERED: POTASSIUM CHLORIDE 20 MEQ TAB.ER.PRT ONE (17:16)
[2020-09-05] MEDS ORDERED: NS + 40MEQ KCL 1,000 ML IV ONE (17:16)
[2020-09-05] MEDS ORDERED: CEFAZOLIN PMX 1GM/50ML 50 ML ONE (17:16)
[2020-09-05] MEDS ORDERED: POTASSIUM CHLORIDE 20 MEQ TAB.ER.PRT PO ONE (17:30)
[2020-09-05] MEDS ORDERED: CEFAZOLIN PMX 1GM/50ML 50 ML IV ONE (17:30)
[2020-09-05] MEDS ORDERED: POTASSIUM CHLORIDE 40 MEQ in SODIUM CHLORIDE 0.9% 500 ML IV ONE (17:30)
--- NOTE | 2020-09-05 17:39 | NUR ---
PT PLACED ON PRESS LEADER SINUS AT THIS TIME. EXPLAINED PLAN OF CARE ANTBX, NO NEED FOR BLOOD CULTURES PER DR. GOEL. PT VERBALZIED UNDERSTANDING
[2020-09-05] MEDS ORDERED: LIDOCAINE-MPF 1%, 5ML ONE ×3 (17:50→19:15)
--- NOTE | 2020-09-05 18:49 | NUR ---
REPORT TO SUMEET SHARIF, PLAN OF CARE DISCUSSED
--- NOTE | 2020-09-05 19:18 | NUR ---
REPORT FROM CHANTE ANGEL. FIRST CONTACT PT TO HAVE I/D. Liza/TAM TERAN.
[2020-09-05 20:17] VITALS: BP 131/81
--- NOTE | 2020-09-05 20:18 | NUR ---
FIRST CONTACT WITH PT, PT HAD I/D. POTASSIUM INFUSING. VSS. WILL CONTINUE TO MONITOR.
--- NOTE | 2020-09-05 20:43 | NUR ---
DC HOME WITH INSTRUCT, IV DC CATH INTACT. PT VERBALIZES UNDERSTANDING OF INSTRUCT AND FU. TO RETURN TO ER IF WORSE OR CONERNS.
== END 2020-09-05 20:51 | disposition home or self-care (01) ==
LOC: ED 16:07
DX: L02.416 Cutaneous abscess of left lower limb (principal); L03.116 Cellulitis of left lower limb; G31.2 Degeneration of nervous system due to alcohol; E87.6 Hypokalemia; I10 Essential (primary) hypertension
CPT/HCPCS: 10061; 36415; 80053; 80307; 83735; 85025; 96365; 96375; 99284; J0690; J3480; J7040

== ENCOUNTER 2020-09-07 10:11 | Inpatient (IN) | payer MEDICAID ==
[~2020-09-07] VITALS: Ht 167.6 cm; Wt 99.8 kg
[2020-09-07] MEDS ORDERED: LIDOCAINE-MPF 1%, 5ML INFIL ONE (11:30)
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
[2020-09-07] MEDS ORDERED: LIDOCAINE-MPF 1%, 5ML ONE ×2 (13:05→21:05)
[2020-09-07] MEDS ORDERED: SODIUM CHLORIDE FLUSH 10ML SYR IVF ONE (13:30)
[2020-09-07] MEDS ORDERED: CEFTRIAXONE 1,000 MG in SODIUM CHLORIDE 0.9% 50 ML IVPB ONE (13:30)
[2020-09-07] MEDS ORDERED: ONDANSETRON 2MG/ML, 2ML IVPush ONE (13:30)
--- NOTE | 2020-09-07 13:30 | NUR ---
PT TO XRAY
--- NOTE | 2020-09-07 14:30 | NUR ---
PT BACK FROM US, CULTURES DRAWN
[2020-09-07] MEDS ORDERED: ONDANSETRON 2MG/ML, 2ML ONE (14:35)
[2020-09-07] MEDS ORDERED: CEFTRIAXONE PMX 1GM/50ML 50 ML ONE (14:35)
[2020-09-07] MEDS ORDERED: HYDROmorphone 1 MG/ML, 1ML INJ ONE ×3 (14:35→20:40)
[2020-09-07 14:36] LABS: MEAN CORPUSCULAR HGB CONC 33.3 g/dL (33.2-36.2); MEAN PLATELET VOLUME 8.2 fL (7.4-10.4); PLATELET COUNT 374 x10^3/uL (130-400); RED BLOOD COUNT 3.64 x10^6/uL (4.38-5.82)
[2020-09-07 14:50] LABS: ALBUMIN 2.4 g/dL (3.4-5.0); ANION GAP 7 mmol/L (5-15); CHLORIDE 103 mmol/L (98-107); CREATININE 0.73 mg/dL (0.7-1.3)
[2020-09-07] MEDS: HYDROmorphone 1 MG/ML, 1ML INJ IVPush PRN ×2 (15:05→16:21)
[2020-09-07 15:08] LABS: MD YES
[2020-09-07 15:11] LABS: BAND#(MANUAL) 1.95 x10^3/uL; BANDS%(MANUAL) 16 % (0-7); LYMPH#(MANUAL) 1.59 x10^3/uL (1-3.4); LYMPHS% (MANUAL) 13 % (22-44); METAMYELOCYTES# (MANUAL) 0.24 x10^3/uL (0-0); METAMYELOCYTES% (MANUAL) 2 % (0-1); MONOS#(MANUAL) 0.85 x10^3/uL (0.3-2.7); MONOS% (MANUAL) 7 % (2-9); SEG#(MANUAL) 7.56 x10^3/uL (1.8-6.8); SEGS% (MANUAL) 62 % (42-75)
[2020-09-07 15:12] LABS: <PLATELET ESTIMATE> ADEQUATE; <PLT MORPHOLOGY> NORMAL PLT MORPH; <RBC MORPHOLOGY> NORMAL; TOXIC GRAN 1+
[2020-09-07] MEDS ORDERED: SODIUM CHLORIDE FLUSH 10ML SYR IVF PRN (16:00)
[2020-09-07] MEDS ORDERED: VANCOMYCIN PER PHARMACY MC PRN (17:00)
[2020-09-07] MEDS ORDERED: LORazepam 2 MG/ML, 1ML IV PRN ×5 (17:00)
[2020-09-07] MEDS ORDERED: LORazepam 1MG TABLET PO PRN ×3 (17:00)
--- NOTE | 2020-09-07 17:23 | NUR ---
RECEIVED REPORT FROM TOBY SHARIF. CARE ASSUMED. PT RESTING IN POSITION OF COMFORT. DENIES NEED TO USE RESTROOM. VSS. CALL LIGHT IN REACH. FALL PRECAUTIONS IN PLACE. AWAITING I&D PER TOBY SHARIF.
--- NOTE | 2020-09-07 17:55 | NUR ---
MEDICATIONS REQUESTED FROM PHARMACY
--- NOTE | 2020-09-07 18:01 | NUR ---
[facility] CALLED FOR IV PUMPS FOR MEDICATIONS COMING FROM PHARMACY
--- NOTE | 2020-09-07 18:10 | NUR ---
DISCUSSED I&D WITH , PER I&D WAS COMPLETED AT EARLIER VISIT, PA IS GOING TO [facility] PACKING IN THE I&D SITE. AWAITING PA FOR PROCEDURE. DR. MOODY AWARE
--- NOTE | 2020-09-07 18:24 | NUR ---
PT CALLED [employer] LIGHT FOR ASSISTANCE. STATES "MY IV MUST HAVE GOT CAUGHT AND CAME OUT." IV ON BED, TIP INTACT. DRESSING APPLIED, CDI TO IV SITE, NO BLEEDING OR SWELLING. PT REQUEST BEDSIDE COMMODE, ASSISTED TO COMMODE. PT WITH SLIGHT TREMORS NOTED, INITIALLY REFUSING ATIVAN BUT NOW REQUESTING ATIVAN, TO MEDICATE PER CIAZ PROTOCOL. TO MEDICATE PER MD ORDER. CONTINUE AWAITING MEDICATIONS FROM PHARMACY AND IV PUMP FROM [facility]. TO PLACE NEW IV WELL. VSS. CALL LIGHT IN REACH. ST ON MONITOR.
[2020-09-07] MEDS ORDERED: THIAMINE 200 MG in SODIUM CHLORIDE 0.9% 50 ML IV ONE (18:30)
[2020-09-07] MEDS: PIPERACILLIN/TAZO/PMX 3.375GM 50 ML IV SCH (18:30)
[2020-09-07] MEDS ORDERED: LORazepam 2 MG/ML, 1ML ONE (18:40)
[2020-09-07] MEDS ORDERED: SERT25TA PO (18:44)
[2020-09-07] MEDS ORDERED: TRAZ-175 PO (18:44)
--- NOTE | 2020-09-07 19:09 | NUR ---
MONIK RN PLACED 18G US GUIDED IV TO LFA. PT MEDICATED NOTED PER ORDER FOR CIWA PROTOCOL, SLIGHT TREMORS NOTED. VSS. ST ON MONITOR. CT AT BEDSIDE TO TAKE PT FOR EXAM. CONTINUE AWAITING IV PUMPS AND IV ANTIOBIOTIC FROM PHARMACY. DAIRY EQUIPMENT MECHANIC BRITTANI AWARE IV PUMP NEEDED, ASSISTING WITH THIS. FALL PRECUATIONS IN PLACE. CALL LIGHT IN REACH
[2020-09-07] MEDS ORDERED: OMNIPAQUE 350 MG/ML, 150 ML BOTTLE ONE (19:39)
--- NOTE | 2020-09-07 19:40 | NUR ---
PT BACK FROM CT. IV PUMP RECEIVED. TIESHA RN AT BEDSIDE TO ASSIST WITH IV MEDICATION ADMIN. TIESHA RN ADMIN ZOSYN ON IV PUMP AT THIS TIME, VERIFIED BLOOD CULTURES DRAWNX2 PRIOR TO ADMIN.
[2020-09-07] MEDS ORDERED: PIPERACILLIN/TAZO/PMX 3.375GM 50 ML ONE (19:42)
[2020-09-07] MEDS: POTASSIUM CHLORIDE 20 MEQ, MAGNESIUM SULFATE 1 GM, FOLIC ACID 1 MG, THIAMINE 200 MG, MV... IV SCH (20:34)
--- NOTE | 2020-09-07 20:35 | NUR ---
TIESHA RN AT BEDSIDE TO ASSIST WITH PT MEDICATION, DISCUSSED PAIN WITH DR. MOODY, AWAITING ORDER FOR DILAUDID. VSS. PT PROVIDED URINAL, VOIDED WITHOUT ANY DIFFICULTY.
--- NOTE | 2020-09-07 20:45 | NUR ---
ATTEMPT X1 TO CALL REPORT TO FLOOR RN FOR PT, ROOM 404-1 RECEIVED.
[2020-09-07] MEDS ORDERED: LIDOCAINE 1%, 10ML INFIL ONE (21:00)
[2020-09-07] MEDS ORDERED: HYDROmorphone 2 MG/ML, 1ML IVPush PRN (21:00)
--- NOTE | 2020-09-07 21:00 | NUR ---
ATTEMPTX2 TO CALL REPORT TO FLOOR RN. SERGIO CHARLES AT BEDSIDE FOR REMOVAL AND REPLACEMENT OF PACKING TO 2 PREVIOUS I&D SITES LLE. IV IN LFA NO LONGER PATENT, RESISTANCE FELT WITH FLUSH AND UNABLE TO INFUSE MEDICATION ON IV PUMP, DISCUSSED WITH DR. MOODY, AWARE, IV REMOVED, TIP INTACT. TIESHA RN PLACED 22G R HAND AT THIS TIME. IV MEDICATIONS INFUING PER ORDER ON IV PUMP. VSS. CALL LIGHT IN REACH.
--- NOTE | 2020-09-07 21:23 | NUR ---
PT REPORTS PAIN IMPROVED TO 5-6/10 "BETTER NOW." NO TREMORS NOTED AT THIS TIME. PT REFUSES NEED FOR ADDITIONAL ATIVAN. VSS. SR ON MONITOR. DRESSING CDI LLE X2 BY SERGIO CHARLES. AWAITING FLOOR RN TO GIVE REPORT AND PT TRANSFER TO FLOOR. CALL LIGHT IN REACH. FALL PRECAUTIONS IN PLACE.
--- NOTE | 2020-09-07 21:40 | NUR ---
PHONE/VERBAL REPORT TO MARK SHARIF AT THIS TIME FOR ROOM 404-1. PT READY FOR TRANSPORT.
[2020-09-07 22:17] VITALS: BP 140/104
[2020-09-07] MEDS ORDERED: PHARMACOKINETIC MONITORING MC PRN (22:30)
[2020-09-07] MEDS ORDERED: PHARMACOKINETIC CONSULTATION MC ONE (22:30)
[2020-09-07] MEDS: MAGNESIUM CHLORIDE 64 MG TABLET.DR PO SCH (23:02)
[2020-09-07] MEDS: LORazepam 1MG TABLET PO PRN (23:02)
[2020-09-07] MEDS: VANCOMYCIN 1,700 MG in SODIUM CHLORIDE 0.9% 250 ML IV SCH (23:50)
[2020-09-07] MEDS: MORPHINE SULFATE 4 MG/ML, 1ML IVPush PRN (23:52)
[2020-09-08] MEDS: PIPERACILLIN/TAZO/PMX 3.375GM 50 ML IV SCH ×4 (01:39→20:13)
[2020-09-08 02:26] VITALS: BP 125/82
[2020-09-08] MEDS: MORPHINE SULFATE 4 MG/ML, 1ML IVPush PRN ×5 (03:15→21:13)
[2020-09-08] MEDS: LORazepam 1MG TABLET PO PRN (03:15)
[2020-09-08 07:08] VITALS: BP 126/80
[2020-09-08] MEDS: MAGNESIUM CHLORIDE 64 MG TABLET.DR PO SCH ×3 (08:55→21:12)
[2020-09-08] MEDS ORDERED: FENTANYL PF 100 MCG/2ML ONE ×2 (09:17)
[2020-09-08] MEDS ORDERED: NALOXONE 1 MG/ML, 2ML ONE (09:17)
[2020-09-08] MEDS ORDERED: MIDAZOLAM 1 MG/ML, 5ML ONE (09:17)
[2020-09-08] MEDS ORDERED: FLUMAZENIL 0.1 MG/1 ML, 5ML ONE (09:17)
[2020-09-08] MEDS ORDERED: LIDOCAINE 1%, 10ML ONE (09:18)
[2020-09-08 10:35] VITALS: BP 127/89
[2020-09-08] MEDS: VANCOMYCIN 1,700 MG in SODIUM CHLORIDE 0.9% 250 ML IV SCH ×2 (12:12→23:35)
[2020-09-08 14:27] VITALS: BP 120/86
[2020-09-08] MEDS: ACETAMINOPHEN 325 MG TABLET PO PRN (15:26)
[2020-09-08] MEDS: HEPARIN 5,000 UNITS/ML, 1ML SQ SCH (17:41)
[2020-09-08] MEDS: POTASSIUM CHLORIDE 20 MEQ, MAGNESIUM SULFATE 1 GM, FOLIC ACID 1 MG, THIAMINE 200 MG, MV... IV SCH (17:41)
[2020-09-08 19:40] VITALS: BP 146/106
[2020-09-09] MEDS: PIPERACILLIN/TAZO/PMX 3.375GM 50 ML IV SCH ×2 (01:16→08:19)
[2020-09-09] MEDS: HEPARIN 5,000 UNITS/ML, 1ML SQ SCH ×3 (01:16→16:23)
[2020-09-09] MEDS: MORPHINE SULFATE 4 MG/ML, 1ML IVPush PRN ×5 (01:17→21:26)
[2020-09-09 02:13] VITALS: BP 131/68
[2020-09-09 05:05] LABS: BASOPHILS % (AUTO) 1 % (0-1); EOSINOPHILS % (AUTO) 2 % (1-7); LYMPHOCYTES % (AUTO) 19 % (22-44); MEAN CORPUSCULAR HEMOGLOBIN 30.9 pg (27.5-34.5); MEAN PLATELET VOLUME 8.2 fL (7.4-10.4); MONOCYTES % (AUTO) 5 % (2-9); NEUTROPHILS % (AUTO) 73 % (42-75); PLATELET COUNT 354 x10^3/uL (130-400); RED BLOOD COUNT 3.71 x10^6/uL (4.38-5.82); RED CELL DISTRIBUTION WIDTH 16.7 % (9.4-14.8)
[2020-09-09 05:09] LABS: MD NO
[2020-09-09 05:16] LABS: ALBUMIN 2.2 g/dL (3.4-5.0); ANION GAP 6 mmol/L (5-15); CHLORIDE 101 mmol/L (98-107)
[2020-09-09 05:20] LABS: ALANINE AMINOTRANSFERASE 132 U/L (12-78); ALKALINE PHOSPHATASE 126 U/L (45-117); BILIRUBIN,TOTAL 2.8 mg/dL (0.2-1.0); CREATININE 0.71 mg/dL (0.7-1.3)
[2020-09-09 06:52] VITALS: BP 127/89
[2020-09-09] MEDS: MAGNESIUM CHLORIDE 64 MG TABLET.DR PO SCH ×3 (08:20→21:26)
[2020-09-09] MEDS: LORazepam 0.5MG TABLET PO PRN (10:52)
[2020-09-09] MEDS: ACETAMINOPHEN 325 MG TABLET PO PRN ×2 (10:52→16:23)
[2020-09-09] MEDS: VANCOMYCIN 1,700 MG in SODIUM CHLORIDE 0.9% 250 ML IV SCH (10:52)
[2020-09-09 12:16] VITALS: BP 125/88
[2020-09-09 18:44] VITALS: BP 119/86
[2020-09-09] MEDS: POTASSIUM CHLORIDE 20 MEQ, MAGNESIUM SULFATE 1 GM, FOLIC ACID 1 MG, THIAMINE 200 MG, MV... IV SCH (19:14)
[2020-09-10 00:07] VITALS: BP 110/77
[2020-09-10] MEDS: VANCOMYCIN 1,700 MG in SODIUM CHLORIDE 0.9% 250 ML IV SCH (00:16)
[2020-09-10] MEDS: HEPARIN 5,000 UNITS/ML, 1ML SQ SCH ×3 (00:23→16:29)
[2020-09-10] MEDS: MORPHINE SULFATE 4 MG/ML, 1ML IVPush PRN ×5 (03:24→20:41)
[2020-09-10 06:35] LABS: ANION GAP 5 mmol/L (5-15); CALCIUM 8.3 mg/dL (8.5-10.1); CHLORIDE 105 mmol/L (98-107); CREATININE 0.65 mg/dL (0.7-1.3)
[2020-09-10 06:38] LABS: BASOPHILS % (AUTO) 3 % (0-1); EOSINOPHILS % (AUTO) 2 % (1-7); LYMPHOCYTES % (AUTO) 24 % (22-44); MEAN CORPUSCULAR HGB CONC 32.8 g/dL (33.2-36.2); MEAN PLATELET VOLUME 8.5 fL (7.4-10.4); MONOCYTES % (AUTO) 6 % (2-9); NEUTROPHILS % (AUTO) 65 % (42-75); PLATELET COUNT 392 x10^3/uL (130-400); RED CELL DISTRIBUTION WIDTH 17.1 % (9.4-14.8)
[2020-09-10 06:42] LABS: C-REACTIVE PROTEIN, QUANT 4.76 mg/dL (0.02-0.49)
[2020-09-10 06:46] LABS: MD NO
[2020-09-10 07:04] LABS: HCT (SEDRATE) 35.9 % (39.2-51.8)
[2020-09-10 07:14] VITALS: BP 105/71
[2020-09-10] MEDS: MAGNESIUM CHLORIDE 64 MG TABLET.DR PO SCH ×2 (07:53→16:29)
[2020-09-10 12:06] VITALS: BP 113/78
[2020-09-10] MEDS: VANCOMYCIN 1,500 MG in SODIUM CHLORIDE 0.9% 250 ML IV SCH ×3 (13:00→21:05)
[2020-09-10 19:22] VITALS: BP 116/80
[2020-09-10] MEDS: POTASSIUM CHLORIDE 20 MEQ, MAGNESIUM SULFATE 1 GM, FOLIC ACID 1 MG, THIAMINE 200 MG, MV... IV SCH (20:16)
[2020-09-10] MEDS: LORazepam 0.5MG TABLET PO PRN (20:41)
[2020-09-11 00:31] VITALS: BP 110/76
[2020-09-11] MEDS: HEPARIN 5,000 UNITS/ML, 1ML SQ SCH ×2 (00:53→08:59)
[2020-09-11] MEDS: MORPHINE SULFATE 4 MG/ML, 1ML IVPush PRN ×5 (00:53→22:06)
[2020-09-11 05:18] LABS: CHLORIDE 105 mmol/L (98-107)
[2020-09-11 05:26] LABS: ANION GAP 5 mmol/L (5-15); CALCIUM 8.8 mg/dL (8.5-10.1); CREATININE 0.68 mg/dL (0.7-1.3)
[2020-09-11] MEDS: VANCOMYCIN 1,500 MG in SODIUM CHLORIDE 0.9% 250 ML IV SCH ×3 (06:18→21:19)
[2020-09-11 06:53] VITALS: BP 111/78
[2020-09-11 07:04] LABS: BASOPHILS % (AUTO) 1 % (0-1); EOSINOPHILS % (AUTO) 3 % (1-7); LYMPHOCYTES % (AUTO) 29 % (22-44); MEAN CORPUSCULAR HEMOGLOBIN 30.8 pg (27.5-34.5); MEAN CORPUSCULAR HGB CONC 32.1 g/dL (33.2-36.2); MEAN PLATELET VOLUME 8.5 fL (7.4-10.4); MONOCYTES % (AUTO) 5 % (2-9); NEUTROPHILS % (AUTO) 61 % (42-75); PLATELET COUNT 412 x10^3/uL (130-400); RED BLOOD COUNT 4.22 x10^6/uL (4.38-5.82); RED CELL DISTRIBUTION WIDTH 17.8 % (9.4-14.8)
[2020-09-11 07:07] LABS: MD NO
[2020-09-11 14:49] VITALS: BP 115/80
[2020-09-11 20:02] VITALS: BP 112/73
[2020-09-11] MEDS: OXYcodone IR 5MG TABLET PO PRN (20:25)
[2020-09-11] MEDS: ACETAMINOPHEN 325 MG TABLET PO PRN (20:25)
[2020-09-12] MEDS ORDERED: CATHFLO-ALTEPLASE 2 MG/2 ML CATHFLUSH ONE
[2020-09-12 00:47] VITALS: BP 116/77
[2020-09-12 04:54] LABS: BASOPHILS % (AUTO) 3 % (0-1); EOSINOPHILS % (AUTO) 3 % (1-7); LYMPHOCYTES % (AUTO) 33 % (22-44); MEAN CORPUSCULAR HEMOGLOBIN 31.4 pg (27.5-34.5); MEAN CORPUSCULAR HGB CONC 33.1 g/dL (33.2-36.2); MONOCYTES % (AUTO) 6 % (2-9); NEUTROPHILS % (AUTO) 54 % (42-75); PLATELET COUNT 429 x10^3/uL (130-400); RED BLOOD COUNT 3.91 x10^6/uL (4.38-5.82); RED CELL DISTRIBUTION WIDTH 17.5 % (9.4-14.8)
[2020-09-12 04:59] LABS: MD NO
[2020-09-12] MEDS: VANCOMYCIN 1,500 MG in SODIUM CHLORIDE 0.9% 250 ML IV SCH ×3 (05:19→22:03)
[2020-09-12 07:09] VITALS: BP 121/84
[2020-09-12] MEDS: ACETAMINOPHEN 325 MG TABLET PO PRN (09:10)
[2020-09-12] MEDS: OXYcodone IR 5MG TABLET PO PRN (09:10)
[2020-09-12 13:30] VITALS: BP 118/87
[2020-09-12] MEDS: MORPHINE SULFATE 4 MG/ML, 1ML IVPush PRN (13:41)
[2020-09-12] MEDS: KETOROLAC 30 MG/1 ML IVPush SCH ×2 (18:50→23:54)
[2020-09-12] MEDS: GABAPENTIN 100 MG CAPSULE PO SCH ×2 (18:50→22:02)
[2020-09-12 21:59] VITALS: BP 124/86
[2020-09-13 00:10] VITALS: BP 131/98
[2020-09-13] MEDS: VANCOMYCIN 1,500 MG in SODIUM CHLORIDE 0.9% 250 ML IV SCH (04:39)
[2020-09-13 04:52] LABS: ANION GAP 5 mmol/L (5-15); CALCIUM 8.4 mg/dL (8.5-10.1); CHLORIDE 110 mmol/L (98-107)
[2020-09-13 04:55] LABS: BASOPHILS % (AUTO) 1 % (0-1); EOSINOPHILS % (AUTO) 3 % (1-7); LYMPHOCYTES % (AUTO) 29 % (22-44); MEAN CORPUSCULAR HEMOGLOBIN 31.3 pg (27.5-34.5); MEAN CORPUSCULAR HGB CONC 32.9 g/dL (33.2-36.2); MEAN PLATELET VOLUME 8.2 fL (7.4-10.4); MONOCYTES % (AUTO) 7 % (2-9); NEUTROPHILS % (AUTO) 60 % (42-75); PLATELET COUNT 382 x10^3/uL (130-400); RED BLOOD COUNT 3.82 x10^6/uL (4.38-5.82); RED CELL DISTRIBUTION WIDTH 17.9 % (9.4-14.8)
[2020-09-13 04:57] LABS: MD NO
[2020-09-13 04:58] LABS: CREATININE 0.73 mg/dL (0.7-1.3); VANCOMYCIN,TROUGH 32.8 mcg/mL (5.0-10.0)
[2020-09-13] MEDS: KETOROLAC 30 MG/1 ML IVPush SCH ×3 (05:59→18:19)
[2020-09-13 06:28] VITALS: BP 146/97
[2020-09-13] MEDS: GABAPENTIN 100 MG CAPSULE PO SCH ×3 (10:21→22:42)
[2020-09-13] MEDS: MORPHINE SULFATE 4 MG/ML, 1ML IVPush PRN ×2 (10:45→19:56)
[2020-09-13 12:44] VITALS: BP 154/105
[2020-09-13] MEDS: HEPARIN 5,000 UNITS/ML, 1ML SQ SCH ×2 (12:48→22:42)
[2020-09-13 15:17] VITALS: BP 147/97
[2020-09-13 19:52] VITALS: BP 129/88
[2020-09-13] MEDS: VANCOMYCIN 1,700 MG in SODIUM CHLORIDE 0.9% 250 ML IV SCH (20:03)
[2020-09-14 00:56] VITALS: BP 128/87
[2020-09-14] MEDS: KETOROLAC 30 MG/1 ML IVPush SCH ×4 (01:28→19:40)
[2020-09-14 05:49] LABS: BASOPHILS % (AUTO) 1 % (0-1); EOSINOPHILS % (AUTO) 4 % (1-7); LYMPHOCYTES % (AUTO) 36 % (22-44); MEAN CORPUSCULAR HEMOGLOBIN 31.2 pg (27.5-34.5); MEAN CORPUSCULAR HGB CONC 32.8 g/dL (33.2-36.2); MEAN PLATELET VOLUME 8.1 fL (7.4-10.4); MONOCYTES % (AUTO) 9 % (2-9); NEUTROPHILS % (AUTO) 51 % (42-75); PLATELET COUNT 314 x10^3/uL (130-400); RED BLOOD COUNT 3.83 x10^6/uL (4.38-5.82)
[2020-09-14 05:59] LABS: MD NO
[2020-09-14 06:00] LABS: HCT (SEDRATE) 36.4 % (39.2-51.8)
[2020-09-14 06:02] LABS: CHLORIDE 111 mmol/L (98-107)
[2020-09-14 06:07] LABS: ANION GAP 3 mmol/L (5-15); C-REACTIVE PROTEIN, QUANT 0.62 mg/dL (0.02-0.49); CALCIUM 8.4 mg/dL (8.5-10.1); CREATININE 0.68 mg/dL (0.7-1.3)
[2020-09-14] MEDS: GABAPENTIN 100 MG CAPSULE PO SCH ×3 (07:25→19:40)
[2020-09-14] MEDS: HEPARIN 5,000 UNITS/ML, 1ML SQ SCH ×3 (07:25→22:04)
[2020-09-14] MEDS: VANCOMYCIN 1,700 MG in SODIUM CHLORIDE 0.9% 250 ML IV SCH ×2 (07:45→19:40)
[2020-09-14 08:02] VITALS: BP 135/95
[2020-09-14] MEDS: MORPHINE SULFATE 4 MG/ML, 1ML IVPush PRN (11:05)
[2020-09-14 14:30] VITALS: BP 134/90
[2020-09-14] MEDS: OXYcodone IR 5MG TABLET PO PRN ×2 (17:44→22:04)
[2020-09-14 18:35] VITALS: BP 128/84
[2020-09-15 00:34] VITALS: BP 122/79
[2020-09-15] MEDS: KETOROLAC 30 MG/1 ML IVPush SCH ×4 (02:00→20:10)
[2020-09-15] MEDS: OXYcodone IR 5MG TABLET PO PRN ×2 (02:00→06:26)
[2020-09-15] MEDS: HEPARIN 5,000 UNITS/ML, 1ML SQ SCH ×3 (06:26→20:11)
[2020-09-15 07:09] VITALS: BP 138/93
[2020-09-15] MEDS: VANCOMYCIN 1,700 MG in SODIUM CHLORIDE 0.9% 250 ML IV SCH ×2 (07:52→20:11)
[2020-09-15] MEDS: GABAPENTIN 100 MG CAPSULE PO SCH ×3 (07:52→20:10)
[2020-09-15 12:59] VITALS: BP 132/88
[2020-09-15] MEDS: MORPHINE SULFATE 4 MG/ML, 1ML IVPush PRN (13:55)
[2020-09-15 18:27] VITALS: BP 152/97
[2020-09-15 23:41] VITALS: BP 146/86
[2020-09-16] MEDS: KETOROLAC 30 MG/1 ML IVPush SCH ×4 (01:30→19:32)
[2020-09-16] MEDS: HEPARIN 5,000 UNITS/ML, 1ML SQ SCH ×3 (06:31→22:48)
[2020-09-16 08:55] LABS: HCT (SEDRATE) 41.4 % (39.2-51.8)
[2020-09-16 08:56] LABS: BASOPHILS % (AUTO) 0 % (0-1); EOSINOPHILS % (AUTO) 5 % (1-7); LYMPHOCYTES % (AUTO) 31 % (22-44); MEAN CORPUSCULAR HEMOGLOBIN 31.1 pg (27.5-34.5); MEAN CORPUSCULAR HGB CONC 32.8 g/dL (33.2-36.2); MEAN PLATELET VOLUME 8.4 fL (7.4-10.4); MONOCYTES % (AUTO) 7 % (2-9); NEUTROPHILS % (AUTO) 57 % (42-75); PLATELET COUNT 270 x10^3/uL (130-400); RED CELL DISTRIBUTION WIDTH 18.2 % (9.4-14.8)
[2020-09-16 09:00] LABS: MD NO
[2020-09-16] MEDS: GABAPENTIN 100 MG CAPSULE PO SCH ×3 (09:22→19:32)
[2020-09-16 09:31] VITALS: BP 144/65
[2020-09-16 10:58] LABS: ALANINE AMINOTRANSFERASE 100 U/L (12-78); ALKALINE PHOSPHATASE 79 U/L (45-117); ANION GAP 7 mmol/L (5-15); BILIRUBIN,TOTAL 0.6 mg/dL (0.2-1.0); CALCIUM 8.5 mg/dL (8.5-10.1); CHLORIDE 109 mmol/L (98-107); CREATININE 0.71 mg/dL (0.7-1.3)
[2020-09-16 10:59] LABS: ALBUMIN 2.6 g/dL (3.4-5.0); TOTAL PROTEIN 8.1 g/dL (6.4-8.2); VANCOMYCIN,TROUGH 14.6 mcg/mL (5.0-10.0)
[2020-09-16 11:14] VITALS: BP 133/89
[2020-09-16] MEDS: VANCOMYCIN 1,700 MG in SODIUM CHLORIDE 0.9% 250 ML IV SCH (11:57)
[2020-09-16] MEDS: MORPHINE SULFATE 4 MG/ML, 1ML IVPush PRN (16:28)
[2020-09-16 20:56] VITALS: BP 144/91
[2020-09-16] MEDS: VANCOMYCIN 1,900 MG in SODIUM CHLORIDE 0.9% 250 ML IV SCH (23:39)
[2020-09-17] MEDS: KETOROLAC 30 MG/1 ML IVPush SCH ×3 (01:04→13:56)
[2020-09-17 01:08] VITALS: BP 138/88
[2020-09-17] MEDS: HEPARIN 5,000 UNITS/ML, 1ML SQ SCH ×2 (06:32→14:12)
[2020-09-17 06:54] VITALS: BP 138/94
[2020-09-17] MEDS: GABAPENTIN 100 MG CAPSULE PO SCH ×2 (08:01→15:38)
[2020-09-17 08:15] LABS: BASOPHILS % (AUTO) 1 % (0-1); EOSINOPHILS % (AUTO) 5 % (1-7); LYMPHOCYTES % (AUTO) 31 % (22-44); MEAN CORPUSCULAR HEMOGLOBIN 31.5 pg (27.5-34.5); MEAN CORPUSCULAR HGB CONC 32.6 g/dL (33.2-36.2); MEAN PLATELET VOLUME 8.7 fL (7.4-10.4); MONOCYTES % (AUTO) 6 % (2-9); NEUTROPHILS % (AUTO) 57 % (42-75); PLATELET COUNT 246 x10^3/uL (130-400); RED BLOOD COUNT 4.31 x10^6/uL (4.38-5.82); RED CELL DISTRIBUTION WIDTH 18.5 % (9.4-14.8)
[2020-09-17 08:24] LABS: MD NO
[2020-09-17 08:26] LABS: ANION GAP 6 mmol/L (5-15); CALCIUM 8.5 mg/dL (8.5-10.1); CHLORIDE 111 mmol/L (98-107)
[2020-09-17] MEDS ORDERED: VANC1.756 IV (08:52)
[2020-09-17] MEDS ORDERED: OXYC5TAB3 PO (08:52)
[2020-09-17] MEDS ORDERED: GABA-826 PO (08:52)
[2020-09-17] MEDS: MORPHINE SULFATE 4 MG/ML, 1ML IVPush PRN (10:38)
[2020-09-17 11:23] VITALS: BP 132/88
[2020-09-17] MEDS: VANCOMYCIN 1,900 MG in SODIUM CHLORIDE 0.9% 250 ML IV SCH (12:59)
== END 2020-09-17 17:44 | DRG 871 ==
LOC: ED 16:24 → EDIP 18:12 → 4WST 22:01
PROVIDERS: ADMIT Internal Medicine; ATTEND Family Medicine
PROC: 02HV33Z Insertion of Infusion Device into Superior Vena Cava, Percutaneous Approach (ICD-10-PCS; principal; 2020-09-08)
PROC: B548ZZA Ultrasonography of Superior Vena Cava, Guidance (ICD-10-PCS; 2020-09-08)
PROC: 0Y9 Anatomical Regions, Lower Extremities, Drainage (ICD-10-PCS; 2020-09-08)
PROC: 0Y9630Z Drainage of Left Inguinal Region with Drainage Device, Percutaneous Approach (ICD-10-PCS; 2020-09-08)
DX: A41.02 Sepsis due to Methicillin resistant Staphylococcus aureus (principal); K65.1 Peritoneal abscess; F10.239 Alcohol dependence with withdrawal, unspecified; L02.416 Cutaneous abscess of left lower limb; L03.116 Cellulitis of left lower limb; F17.200 Nicotine dependence, unspecified, uncomplicated; I10 Essential (primary) hypertension; K70.10 Alcoholic hepatitis without ascites; Z76.5 Malingerer [conscious simulation]; Z82.49 Family history of ischemic heart disease and other diseases of the circulatory system; Z83.3 Family history of diabetes mellitus; Z90.49 Acquired absence of other specified parts of digestive tract; W21.03XA Struck by baseball, initial encounter; Y93.89 Activity, other specified; Y92.89 Other specified places as the place of occurrence of the external cause; Y99.8 Other external cause status
CPT/HCPCS: 36415; 73564; 75989; 96374; 96375; 99285; J3490; 10160; 36573; 80048; 80053; 80202; 82040; 83605; 83735; 85025; 85651; 86140; 87040; 87070; 87075; 87077; 87186; 87205; 99156; 99157; G0378; J0696; J1170; J1644; J1885; J2250; J2405; J2543; J2997; J3010; J3370; J3411; J3475; J3480; J7070; Q9967; C1729; C1751; C1769; J2060; J2270; J2310; J7050